=== PATIENT | female | born 1960 | race Caucasian/White ===

== ENCOUNTER 2018-01-01 07:37 | Day surgery (SDC) | payer OTHER ==
[2018-01-01] MEDS ORDERED: ONDANSETRON HCL 40 MG/20 ML VIAL ONE (07:50)
[2018-01-01] MEDS ORDERED: PROPOFOL 200 MG/20 ML VIAL IV ONE (07:50)
[2018-01-01] MEDS ORDERED: FENTANYL CITR 250 MCG/5 ML ONE (07:50)
[2018-01-01] MEDS ORDERED: LIDOCAINE 2% MPF 5 ML VIAL ONE (07:50)
[2018-01-01] MEDS ORDERED: MIDAZOLAM HCL 2 MG/2 ML INJ ONE (07:50)
[2018-01-01] MEDS ORDERED: STRONG IODINE SOLN 15 ML BTL TOP ONE (07:52)
[2018-01-01] MEDS ORDERED: ACETIC ACID 0.25% IRRIG ONE (07:52)
[2018-01-01] MEDS ORDERED: Ringers Lactate 1,000 ML IV ONE ×2 (07:57→10:12)
[2018-01-01] MEDS ORDERED: NA CHLORIDE 0.9% 0 ML ONE (08:09)
[2018-01-01] MEDS ORDERED: VASOPRESSIN 20 UNIT/ML VIAL ONE (08:10)
[2018-01-01] MEDS: LIDOCAINE 1% W/EPI 1:100,000 MDV 50 ML VIAL ONE ×2 (08:30→09:19)
[2018-01-01] MEDS ORDERED: EPHEDRINE SULF 50 MG/5 ML SYR ONE (08:42)
[2018-01-01] MEDS ORDERED: CEFAZOLIN SODIUM 1 GM/VIAL ONE (08:56)
== END 2018-01-01 12:00 | disposition home or self-care (01) ==
LOC: OR 07:37
PROVIDERS: ATTEND Obstetrics & Gynecology
PROC: 0HBAXZX Excision of Inguinal Skin, External Approach, Diagnostic (ICD-10-PCS; principal; 2018-01-01 09:15)
PROC: 0UJH8ZZ Inspection of Vagina and Cul-de-sac, Via Natural or Artificial Opening Endoscopic (ICD-10-PCS; 2018-01-01 09:15)
DX: D07.1 Carcinoma in situ of vulva (principal); I10 Essential (primary) hypertension; F41.9 Anxiety disorder, unspecified; F32.9 Major depressive disorder, single episode, unspecified; M79.7 Fibromyalgia; M06.9 Rheumatoid arthritis, unspecified; K57.90 Diverticulosis of intestine, part unspecified, without perforation or abscess without bleeding; F17.210 Nicotine dependence, cigarettes, uncomplicated; N30.00 Acute cystitis without hematuria; N95.2 Postmenopausal atrophic vaginitis; Z88.5 Allergy status to narcotic agent; Z88.8 Allergy status to other drugs, medicaments and biological substances
CPT/HCPCS: 11626; 56821; 88305; J0690; J2250; J2405

== ENCOUNTER 2019-04-09 06:36 | Day surgery (SDC) | payer OTHER ==
[2019-04-08 14:03] LABS: Absolute Lymphocytes (CBC) 2.2 K/uL (0.7-4.9); Basophils % 2.1 % (0-1.3); Hematocrit 30.1 % (36.0-45.0); Lymphocytes % 34.4 % (15.3-44.8); MPV 9.4 fL (7.6-11.3)
[2019-04-08 14:10] LABS: Protime INR 0.9
[2019-04-08 14:15] LABS: Potassium 4.6 mmol/L (3.5-5.1)
[2019-04-09] MEDS ORDERED: LIDOCAINE 1% 20 ML MDV ONE (06:57)
[2019-04-09] MEDS ORDERED: HEPA 1000U/500MLS 2,000 UNIT/1,000 ML BAG IV ONE (06:58)
[2019-04-09] MEDS ORDERED: NA CHLORIDE 0.9% 500 ML ONE (07:21)
[2019-04-09] MEDS ORDERED: ATROPINE SULF 1 MG/10 ML SYR IV ONE (07:53)
[2019-04-09] MEDS ORDERED: HEPARIN 5000 UNIT/ML 1 ML VIAL ONE (07:53)
[2019-04-09] MEDS ORDERED: NITROGLYCERIN 100 MCG/ML SYR (for cath lab use only) IV ONE (07:53)
[2019-04-09] MEDS ORDERED: FENTANYL CITR 100 MCG/2 ML ONE (07:53)
[2019-04-09] MEDS ORDERED: NICARDIPINE HCL 25 MG/10 ML IV ONE (07:53)
[2019-04-09] MEDS ORDERED: MIDAZOLAM HCL 2 MG/2 ML INJ ONE ×2 (07:53→08:22)
[2019-04-09] MEDS ORDERED: NITROGLYCERIN/D5W 25 MG/250 ML BTL IV ONE (07:54)
[2019-04-09] MEDS ORDERED: NA CHLORIDE 0.9% 0 ML ONE (07:54)
--- NOTE | 2019-04-09 09:26 | EKG ---
Test Date: 2019-04-08 Test Time: 13:22:59 Lead Java Software Engineer: NATALIIA MEASUREMENT RESULTS: Intervals: Rate: 48 CO: 204 QRSD: 104 QT: 460 QTc: 410 [place]: P: 52 CO: 204 QRS: 45 T: 41 INTERPRETIVE STATEMENTS: Marked sinus bradycardia Abnormal ECG No previous ECG available for comparison Electronically Signed On 04-09-19 09:24:09 CDT by Jose Correa
[2019-04-09 09:52] VITALS: TEMP 97.2
[2019-04-09 10:42] VITALS: BP 117/64; O2SAT 100
--- NOTE | 2019-04-09 19:27 | OP ---
Surgeon: Jose Correa MD Additional Attending Physician: Dr. Luiza Sanchez. Procedure: Left heart catheterization, coronary left ventricular angiography. Procedure Findings: The patient has normal coronary arteries. Her left ventricular ejection fractio n is normal. The left ventricular end-diastolic pressure is normal at 12. There were no abnormaliti es seen during the cardiac cath; and the diagnosis is she had a false-positive stress test and has no ncardiac chest pain. Procedure In Detail: The patient was brought to the cardiac ear mold laboratory technician in a fasting state, sedated wit h Versed and fentanyl. Prepared and draped in usual sterile fashion. Right radial approach was used . We anesthetized the skin over the right radial artery with 2 cc of 1% lidocaine. We entered the a rtery using a 21-gauge needle, cannulated the artery with a 0.021 inch diameter guidewire and placed a 6-Japanese Terumo sheath. As soon as the sheath was in place, we flushed it and administered the rad ial cocktail through the sheath consisting of nicardipine, heparin, and nitroglycerin. We guided a T IG catheter into the ascending aorta using a Terumo Glidewire and fluoroscopy. We were able to angio gram left coronary, right coronary, left ventricle, all with the same catheter at the end of the proc edure and all the data was obtained. We withdrew the catheter over a wire, flushed the sheath, remov ed the sheath, and closed the arteriotomy using a TR band. Estimated Blood Loss: 5 cc. Worm Grower: Erin Truong. Complications: None. STEPHEN/SHAWNA Voice ID: [id number] Report ID: [id number]
--- NOTE | 2019-04-12 01:55 | HP ---
Date of Admission: 04/09/2019 History Of Present Illness: Ms. Escalante is 58. She has a history of chest pain. She has had several n oninvasive tests that are indicative of either scar or ischemia. We decided to do a cardiac cath to see if she really has coronary heart disease or not. It is equivocal. Her chest pain was atypical. She does not have diabetes or dyslipidemia. Never had a previous history of myocardial infarction o r stroke. She reports drug intolerance to atorvastatin, pregabalin, and hydrocortisone. She uses no tobacco. Physical Examination: Vital Signs: Her blood pressure is 123/74, heart rate 52, temperature 97.2, not in any pain. HEENT: Unremarkable. Lungs: Clear. Cardiac: Within normal limits. Carotids, no bruit. Abdomen: Reveals no pulsatile mass or other mass. No tenderness, guarding, rigidity, rebound. Extremities: No cyanosis, clubbing, or edema. Radial pulses are equal. Jitendra sign is normal in bot h sides. Recommendation: The patient have a cardiac cath for diagnostic purposes and if there is a stenosis, she will consent to doing the stent at the same time. The patient seems to understand the procedure, its potential benefits, indications, risks, and agrees to proceed. CAMDEN Voice ID: [id number]
== END 2019-04-09 10:44 | disposition home or self-care (01) ==
LOC: CCL 06:36
PROVIDERS: ATTEND Internal Medicine
DX: R94.39 Abnormal result of other cardiovascular function study (principal); R07.89 Other chest pain; I10 Essential (primary) hypertension; Z88.6 Allergy status to analgesic agent; Z88.5 Allergy status to narcotic agent; Z88.8 Allergy status to other drugs, medicaments and biological substances
CPT/HCPCS: 93005; 85025; 80048; 36415; 85610; 85730; 93458; C1893; J1644; J2250 ×2; J3010; J0583

== ENCOUNTER 2023-05-31 06:55 | Observation (INO) | payer OTHER ==
[2023-05-28 14:41] LABS: Specific Gravity 1.008 (1.005-1.030); Urine Bilirubin NEGATIVE (Negative); Urine Blood Negative (Negative); Urine Clarity Clear (Clear); Urine Color Light-Yellow (Yellow); Urine Glucose NEGATIVE (Negative); Urine Protein NEGATIVE (Negative); Urine Urobilinogen Normal (Normal); Urine pH 7.5 (5.0-7.0)
[2023-05-28 14:42] LABS: Absolute Lymphocytes (CBC) 2.1 K/uL (0.7-4.9); Hematocrit 38.1 % (36.0-45.0); MCV 86.7 fL (80-100); MPV 8.6 fL (7.6-11.3); Platelets 236 thou/uL (152-406)
[2023-05-28 14:44] LABS: Protime INR 0.88
[2023-05-28 14:51] LABS: Potassium 4.1 mEq/L (3.5-5.1)
--- NOTE | 2023-05-30 17:29 | EKG ---
Test Date: 2023-05-28 Test Time: 15:00:10 Field Marketing Lead: JAIMIE MEASUREMENT RESULTS: Intervals: Rate: 62 IN: 224 QRSD: 82 QT: 442 QTc: 448 [place]: P: 75 IN: 224 QRS: 47 T: 43 INTERPRETIVE STATEMENTS: Sinus rhythm with 1st degree AV block with premature atrial complexes with aberrant conduction Otherwise normal ECG Compared to ECG 04/08/2019 13:22:59 Atrial premature complex(es) now present First degree AV block now present Aberrant conduction of supraventricular beat(s) now present Sinus bradycardia no longer present Electronically Signed On 05-30-23 17:23:04 SOLAR MAINTENANCE TECHNICIAN by Morales Castillo
[2023-05-31] MEDS ORDERED: CEFAZOLIN SODIUM 2 GM/VIAL ONE ×2 (07:37→08:15)
[2023-05-31] MEDS ORDERED: Ringers Lactate 1,000 ML IV ONE ×2 (07:37→14:21)
[2023-05-31] MEDS ORDERED: propofoL 200 MG/20 ML VIAL IV ONE (08:04)
[2023-05-31] MEDS ORDERED: ROCURONIUM 50 MG/5 ML VIAL IV ONE (08:04)
[2023-05-31] MEDS ORDERED: ONDANSETRON 4 MG/2 ML VIAL ONE ×2 (08:04→12:51)
[2023-05-31] MEDS ORDERED: FENTANYL CITR 100 MCG/2 ML ONE (08:04)
[2023-05-31] MEDS ORDERED: KETOROLAC 30 MG/ML INJ ONE (08:04)
[2023-05-31] MEDS ORDERED: MIDAZOLAM HCL 2 MG/2 ML INJ ONE (08:04)
[2023-05-31] MEDS ORDERED: SCOPOLAMINE HYDROBROMIDE PATCH TD ONE (08:12)
[2023-05-31] MEDS ORDERED: EPHEDRINE SULF 50 MG/ML VIAL ONE ×2 (09:04→09:14)
[2023-05-31] MEDS ORDERED: NS 0.9% VIAL 30 ML ONE (09:08)
[2023-05-31] MEDS ORDERED: LANO/MINERAL OIL/PETRO 3.5 GM ONE (09:20)
[2023-05-31] MEDS ORDERED: VECURONIUM 10 MG/VIAL IV ONE (10:08)
[2023-05-31] MEDS: HYDROMORPHONE HCL 1 MG/ML INJ ONE ×4 (10:55→11:10)
[2023-05-31] MEDS ORDERED: ACETAMINOPHEN 500 MG TAB PO PRN (10:58)
[2023-05-31] MEDS ORDERED: HOME MED 1 EA UNK (Estradiol [Estrace] 42.5 GM Cream.Appl) PO SCH (11:00)
--- NOTE | 2023-05-31 11:09 | P.BOP ---
Preoperative diagnosis: symptomatic stage 3 posterior wall prolapse Postoperative diagnosis: same, post enterocele, perineal body defect Primary procedure: posterior wall defect repair with biological graft augmentation Secondary procedure: post enterocele repair, perineorrhaphy, starr SSLF cervico- colpopexy Other procedure(s): cystoscopy Boiler Tester: NONE,NONE Estimated blood loss: 150 Specimen: none Findings: -2/-2/-4/5/thin/7/+1/+2/-4, posterior enterocele, cysto patent ureters Anesthesia: General Complications: None Drain(s): Urinary catheter Implants: coloplast axis dermis 6x8cm graft Fluids & blood products: 1200/UO 100 Transferred to: Recovery Room Condition: Good
[2023-05-31] MEDS: FENTANYL CITR 100 MCG/2 ML ONE ×2 (11:35→13:00)
--- OUTSIDE RECORDS SUMMARY | 2023-05-31 13:48 | XMS REPORT | Continuity of Care Document ---
:1960 Author Organization [facility] t Address [address] [place] [address] [address] [place] [address] Care Team Providers Name Role Phone Citlali Gama MD Primary Care Physician [email or web address] Attending Clinician Unavailable Dayana Gaitan MD Attending Clinician TAMMY MCNEAL Attending Clinician Unavailable Tammy Mcneal MD Attending Clinician DAYANA GAITAN Attending Clinician Unavailable Doctor Unassigned, [place] Attending Clinician Unavailable Vitor Day MD Attending Clinician Mckenzie Conner MA Attending Clinician Unavailable RADIOLOGY Attending Clinician Unavailable Radiology Attending Clinician Unavailable Josué Pruett MD Attending Clinician MARVIN GREENBERG Attending Clinician Unavailable Yao Fischer Attending Clinician YAO FITZGERALD Attending Clinician Unavailable JOSUÉ PRUETT Attending Clinician Unavailable Serafin Michel MD Attending Clinician Girish Lora DO Attending Clinician Luiza Abbott Attending Clinician ARNAUD PENA Attending Clinician Unavailable MD ARNAUD PENA Attending Clinician Unavailable [email or web address] Admitting Clinician Unavailable TAMMY MCNEAL Admitting Clinician Unavailable MAYA FABIAN Admitting Clinician Unavailable JOSUÉ PRUETT Admitting Clinician Unavailable ARNAUD PENA Admitting Clinician Unavailable MD ARNAUD PENA Admitting Clinician Unavailable Payers Payer Name Policy Type Policy Number Effective Date Expiration Date Marc reed [email or web address] [id number] 2018 00:00:00 [employer] [id number] 2018 00:00:00 [facility] [id number] PHYSICIAN ORGANIZATION - [facility] [address] (MEDICARE REPLACEMENT HMO) Problems Condition Condition Condition Status Onset Resolution Last Treating Co mments Source Name Details Category Date Date Treatment Clinician Date Primary Primary Disease Active [facility] osteoarthr osteoarthr 11-14 [facility] itis of 00:00: Hospita right knee right knee 00 l Class 3 Class 3 Disease Active [facility] severe severe [address] [facility] obesity obesity 00:00: Hospita due to due to 00 l excess excess calories calories with with serious serious comorbidit comorbidit y and body y and body mass index mass index (BMI) of (BMI) of 45.0 to 45.0 to 49.9 in 49.9 in adult adult Wound Wound Disease Active 2016-07 Univers infection infection 1-05 ity of 00:00: [place] [id number] Medical Branch Essential Essential Disease Active 2016-07 Uni vers hypertensi hypertensi 0-17 it y of on on 00:00: [place] [id number] Medical Branch Morbid Morbid Disease Active 2016-07 Univers obesity obesity 0-17 ity of with BMI with BMI 00:00: [place] of of 00 Medical 50.0-59.9, 50.0-59.9, Br anch adult adult Vulvar Vulvar Disease Active 2016-07 Overview: Univer s lesion lesion 0-17 Formattin ity of 00:00: g of this note Medical might be Branch different from the original. Added automatic ally from request for surgery [id number] Right knee Right knee Disease Active U nivers pain pain 7-15 ity of 00:00: [place] [facility] Right knee Right knee Disease Active U nivers pain pain 7-15 ity of 00:00: [place] [facility] Allergies, Adverse Reactions, Alerts Allergy Allergy Status Severity Reaction(s) Onset Inactive Treating Comm ents Source Name Type Date Date Clinician Statins- Propensi Active Palpitations 2019-07 Methodi Hmg-Coa ty to 07-25 st Reductas adverse 00:00: Hospita e reaction 00 l Inhibito s to rs drug Adhesive Propensi Active Rash 2019-07 Method i Tape-Vandana ty to 07-24 st icones adverse 00:00: Hospita reaction 00 l s to drug Nsaids Propensi Active Other - See Uni vers (Non-Braulio ty to comments 08-12 ity of roidal adverse 00:00: [place] Anti-Inf reaction 00 Medica l lammator s Branch y Drug) NSAIDS Drug Active Other-Cmnt Univer s (NON-BRAULIO Class 08-12 ity of ROIDAL 00:00: [place] ANTI-INF 00 Medical LAMMATOR Branch Y DRUG) Nsaids Propensi Active Other - See Uni vers (Non-Braulio ty to comments 08-12 ity of roidal adverse 00:00: [place] Anti-Inf reaction 00 Medica l lammator s Branch y Drug) PREGABAL DRUG Active Rash Univers IN INGREDI 10-09 ity of 00:00: [place] 00 Medical Branch Pregabal Propensi Active Rash Univer s in ty to 10-09 ity of adverse 00:00: [place] reaction 00 Medical s Branch Social History Social Habit Start Date Stop Date Quantity Comments Source Gender identity [facility] [place] [facility] [place] History [facility] o f Alcohol Frequency [facility] edical Branch History [facility] o f Alcohol Std Drinks [place] [facility] [place] History [facility] o f Alcohol Binge [place] [facility] History of tobacco Current smoker [facility] Sexual orientation [facility] Exposure to 2022-11-27 2022-12-07 Not sure University of SARS-CoV-2 (event) 00:00:00 13:58:00 [facility] Alcohol intake 2022-11-21 2022-11-21 [facility] 00:00:00 00:00:00 non-drinker Hospital (finding) History of Social 2022-11-21 2022-11-[address] function 00:00:00 00:00:00 Hospital Tobacco use and 2022-06-01 2022-06-01 [facility] exposure 00:00:00 00:00:00 tobacco non-user Hospital Alcohol Comment 2017-04-27 2017-04-27 occ Universit y of 00:00:00 00:00:00 [facility] Cigarettes smoked 2016-01-28 2016-01-28 [facility] ity of current (pack per 00:00:00 00:00:00 ) - Reported Branch Sex Assigned At [birth year] [facility] 00:[facility]:00 Hospital Smoking Status Start Date Stop Date Source Ex-smoker 2022-06-01 00:00:00 2022-06-01 00:00:00 [facility] Smokes tobacco daily 2016-01-28 00:00:00 [facility] ity of [facility] Medications Ordered Filled Start Stop Current Ordering Indication Dosage Frequency Signature Comments Components Source Medication Medication Date Date Medication? Clinician (SIG) Name Name cranberry Yes Take by Metho di fruit 5-[address] (cranberry) 16:11: Hospit a 450 mg 11 l tablet ferrous Yes 325mg QD Take 1 [facility]i sulfate 325 5-[address] (65 FE) MG 16:11: (325 mg Hosp sade tablet 11 total) by l mouth daily with breakfast. gabapentin Yes 400mg Q.[id number] Take 1 [facility]i (NEURONTIN) 5-[id number] 400 mg 16:11: 3D (400 mg Hospita capsule 11 total) by l mouth 3 (three) times a day. multivitami Yes 1{tbl} QD Take 1 Me thodi n 5-[address] (THERAGRAN) 16:11: mouth Hospi ta tablet 11 daily. l Saccharomyc Yes 250mg Q.5D Take 1 Met hodi es 5-[address] boulardii 16:11: (250 mg Hospi ta (FLORASTOR) 11 total) by l 250 mg mouth 2 capsule (two) times a day. traMADoL 0 [place] [id number] 50mg Q6H Take 1 Method i (ULTRAM) 50 5-09 tablet (50 st mg tablet 16:11: mg total) Hos reina 11 by mouth l every 6 (six) hours as needed for moderate pain .acute pain. venlafaxine Yes 225mg QD Take 1 Met hodi 225 MG 5-[address] tablet 16:11: (225 mg Hospita extended 11 total) by l release mouth 24hr 24 hr daily. tablet ALPRAZolam Yes 1mg QD Take 1 Metho di (XANAX) 1 5-09 tablet (1 st MG tablet 16:11: mg total) Hos reina 11 by mouth l nightly as needed for anxiety. carvediloL Yes 6.25mg Q.5D Take 1 Met hodi (COREG) 5-[address] 6.25 MG 16:11: (6.25 mg Hospit a tablet 11 total) by l mouth 2 (two) times a day with meals. levothyroxi Yes 50ug QD Take 1 Meth tomás ne 5-09 tablet (50 st (SYNTHROID) 16:11: mcg total) Hospita 50 mcg 11 by mouth l tablet daily. aspirin Yes 81mg QD Take 1 Methodi (ECOTRIN) 5-09 tablet (81 st 81 MG 16:11: mg total) Hospita enteric 11 by mouth l coated daily. tablet carvedilol 2020-07 Yes 12.5mg Take 12.5 Univers 12.5 mg 1-10 mg by ity of tablet 14:41: mouth 2 (two) Medical times Branch daily with meals. estradiol 2020-07 Yes 2g Insert 2 g Un pato (ESTRACE) 1-10 into ity of 0.01 % (0.1 14:[place]: [place] mg/gram[place] 00 weekly. Medical vaginal Branch cream omeprazole 2020-07 Yes 20mg Take 20 mg U nivers 20 mg 1-10 by mouth ity of capsule 14:41: daily. Medical Branch venlafaxine 2020-07 Yes 37.5mg Take 37.5 Univers XR 37.5 mg 1-10 mg by ity of 24 hr 14:41: mouth [place] capsule 00 daily with Medica l breakfast. Branch carvedilol 2020-07 Yes 12.5mg Take 12.5 Univers 12.5 mg 1-10 mg by ity of tablet 14:41: mouth 2 00 (two) Medical times Branch daily with meals. estradiol 2020-07 Yes 2g Insert 2 g Un pato (ESTRACE) 1-10 into ity of 0.01 % (0.1 14:41: [place] mg/gram) 00 weekly. Medical vaginal Branch cream omeprazole 2020-07 Yes 20mg Take 20 mg U nivers 20 mg 1-10 by mouth ity of capsule 14:41: daily. Medical Branch venlafaxine 2020-07 Yes 37.5mg Take 37.5 Univers XR 37.5 mg 1-10 mg by ity of 24 hr 14:41: mouth [place] capsule 00 daily with Medica l breakfast. Branch carvedilol 2020-07 Yes 12.5mg Take 12.5 Univers 12.5 mg 1-10 mg by ity of tablet 14:41: mouth 2 (two) Medical times [place] daily with meals. estradiol 2020-07 Yes 2g Insert 2 g Un pato (ESTRACE) 1-10 into ity of 0.01 % (0.1 14:41: [place] mg/gram) 00 weekly. Medical vaginal Branch cream omeprazole 2020-07 Yes 20mg Take 20 mg U nivers 20 mg 1-10 by mouth ity of capsule 14:41: daily. Medical Branch venlafaxine 2020-07 Yes 37.5mg Take 37.5 Univers XR 37.5 mg 1-10 mg by ity of 24 hr 14:41: mouth [place] capsule 00 daily with Medica l breakfast. Branch carvedilol 2020-07 Yes 12.5mg Take 12.5 Univers 12.5 mg 1-10 mg by ity of tablet 14:41: mouth 2 (two) Medical times [place] daily with meals. estradiol 2020-07 Yes 2g Insert 2 g Un pato (ESTRACE) 1-10 into ity of 0.01 % (0.1 14:41: [place] mg/gram) 00 weekly. Medical vaginal Branch cream omeprazole 2020-07 Yes 20mg Take 20 mg U nivers 20 mg 1-10 by mouth ity of capsule 14:41: daily. Medical Branch venlafaxine 2020-07 Yes 37.5mg Take 37.5 Univers XR 37.5 mg 1-10 mg by ity of 24 hr 14:41: mouth [place] capsule 00 daily with Medica l breakfast. Branch carvedilol 2020-07 Yes 12.5mg Take 12.5 Univers 12.5 mg 1-10 mg by ity of tablet 14:41: mouth 2 (two) Medical times [place] daily with meals. estradiol 2020-07 Yes 2g Insert 2 g Un pato (ESTRACE) 1-10 into ity of 0.01 % (0.1 14:41: [place] mg/gram) 00 weekly. Medical vaginal Branch cream omeprazole 2020-07 Yes 20mg Take 20 mg U nivers 20 mg 1-10 by mouth ity of capsule 14:41: daily. Medical Branch venlafaxine 2020-07 Yes 37.5mg Take 37.5 Univers XR 37.5 mg 1-10 mg by ity of 24 hr 14:41: mouth [place] capsule 00 daily with Medica l breakfast. Branch carvedilol 2020-07 Yes 12.5mg Take 12.5 Univers 12.5 mg 1-10 mg by ity of tablet 14:41: mouth 2 (two) Medical times [place] daily with meals. estradiol 2020-07 Yes 2g Insert 2 g Un pato (ESTRACE) 1-10 into ity of 0.01 % (0.1 14:41: [place] mg/gram) 00 weekly. Medical vaginal Branch cream omeprazole 2020-07 Yes 20mg Take 20 mg U nivers 20 mg 1-10 by mouth ity of capsule 14:41: daily. Medical Branch venlafaxine 2020-07 Yes 37.5mg Take 37.5 Univers XR 37.5 mg 1-10 mg by ity of 24 hr 14:41: mouth [place] capsule 00 daily with Medica l breakfast. Branch carvedilol 2020-07 Yes 12.5mg Take 12.5 Univers 12.5 mg 1-10 mg by ity of tablet 14:41: mouth 2 (two) Medical times [place] daily with meals. estradiol 2020-07 Yes 2g Insert 2 g Un pato (ESTRACE) 1-10 into ity of 0.01 % (0.1 14:41: [place] mg/gram) 00 weekly. Medical vaginal Branch cream omeprazole 2020-07 Yes 20mg Take 20 mg U nivers 20 mg 1-10 by mouth ity of capsule 14:41: daily. Medical Branch venlafaxine 2020-07 Yes 37.5mg Take 37.5 Univers XR 37.5 mg 1-10 mg by ity of 24 hr 14:41: mouth [place] capsule 00 daily with Medica l breakfast. Branch carvedilol 2020-07 Yes 12.5mg Take 12.5 Univers 12.5 mg 1-10 mg by ity of tablet 14:41: mouth 2 (two) Medical times [place] daily with meals. estradiol 2020-07 Yes 2g Insert 2 g Un pato (ESTRACE) 1-10 into ity of 0.01 % (0.1 14:41: [place] mg/gram) 00 weekly. Medical vaginal Branch cream omeprazole 2020-07 Yes 20mg Take 20 mg U nivers 20 mg 1-10 by mouth ity of capsule 14:41: daily. Medical Branch venlafaxine 2020-07 Yes 37.5mg Take 37.5 Univers XR 37.5 mg 1-10 mg by ity of 24 hr 14:41: mouth [place] capsule 00 daily with Medica l breakfast. Branch carvedilol 2020-07 Yes 12.5mg Take 12.5 Univers 12.5 mg 1-10 mg by ity of tablet 14:41: mouth (two) Medical times [place] daily with meals. estradiol 2020-07 Yes 2g Insert 2 g Un pato (ESTRACE) 1-10 into ity of 0.01 % (0.1 14:41: [place] mg/gram) 00 weekly. Medical vaginal Branch cream omeprazole 2020-07 Yes 20mg Take 20 mg U nivers 20 mg 1-10 by mouth ity of capsule 14:41: daily. Medical Branch venlafaxine 2020-07 Yes 37.5mg Take 37.5 Univers XR 37.5 mg 1-10 mg by ity of 24 hr 14:41: mouth [place] capsule 00 daily with Medica l breakfast. Branch carvedilol 2020-07 Yes 12.5mg Take 12.5 Univers 12.5 mg 1-10 mg by ity of tablet 14:41: mouth 2 (two) Medical times [place] daily with meals. estradiol 2020-07 Yes 2g Insert 2 g Un pato (ESTRACE) 1-10 into ity of 0.01 % (0.1 14:41: [place] mg/gram) 00 weekly. Medical vaginal Branch cream omeprazole 2020-07 Yes 20mg Take 20 mg U nivers 20 mg 1-10 by mouth ity of capsule 14:41: daily. Medical Branch venlafaxine 2020-07 Yes 37.5mg Take 37.5 Univers XR 37.5 mg 1-10 mg by ity of 24 hr 14:41: mouth [place] capsule 00 daily with Medica l breakfast. Branch carvedilol 2020-07 Yes 12.5mg Take 12.5 Univers 12.5 mg 1-10 mg by ity of tablet 14:41: mouth 2 (two) Medical times [place] daily with meals. estradiol 2020-07 Yes 2g Insert 2 g Un pato (ESTRACE) 1-10 into ity of 0.01 % (0.1 14:41: [place] mg/gram) 00 weekly. Medical vaginal Branch cream omeprazole 2020-07 Yes 20mg Take 20 mg U nivers 20 mg 1-10 by mouth ity of capsule 14:41: daily. Medical Branch venlafaxine 2020-07 Yes 37.5mg Take 37.5 Univers XR 37.5 mg 1-10 mg by ity of 24 hr 14:41: mouth [place] capsule 00 daily with Medica l breakfast. Branch carvedilol 2020-07 Yes 12.5mg Take 12.5 Univers 12.5 mg 1-10 mg by ity of tablet 14:41: mouth (two) Medical times [place] daily with meals. estradiol 2020-07 Yes 2g Insert 2 g Un pato (ESTRACE) 1-10 into ity of 0.01 % (0.1 14:41: [place] mg/gram) 00 weekly. Medical vaginal Branch cream omeprazole 2020-07 Yes 20mg Take 20 mg U nivers 20 mg 1-10 by mouth ity of capsule 14:41: daily. Medical Branch venlafaxine 2020-07 Yes 37.5mg Take 37.5 Univers XR 37.5 mg 1-10 mg by ity of 24 hr 14:41: mouth [place] capsule 00 daily with Medica l breakfast. Branch carvedilol 2020-07 Yes 12.5mg Take 12.5 Univers 12.5 mg 1-10 mg by ity of tablet 14:41: mouth 2 (two) Medical times [place] daily with meals. estradiol 2020-07 Yes 2g Insert 2 g Un pato (ESTRACE) 1-10 into ity of 0.01 % (0.1 14:41: [place] mg/gram) 00 weekly. Medical vaginal Branch cream omeprazole 2020-07 Yes 20mg Take 20 mg U nivers 20 mg 1-10 by mouth ity of capsule 14:41: daily. Medical Branch venlafaxine 2020-07 Yes 37.5mg Take 37.5 Univers XR 37.5 mg 1-10 mg by ity of 24 hr 14:41: mouth [place] capsule 00 daily with Medica l breakfast. Branch carvedilol 2020-07 Yes 12.5mg Take 12.5 Univers 12.5 mg 1-10 mg by ity of tablet 14:41: mouth 2 00 (two) Medical times Branch daily with meals. estradiol 2020-07 Yes 2g Insert 2 g Un pato (ESTRACE) 1-10 into ity of 0.01 % (0.1 14:41: [place] mg/gram) 00 weekly. Medical vaginal Branch cream omeprazole 2020-07 Yes 20mg Take 20 mg U nivers 20 mg 1-10 by mouth ity of capsule 14:41: daily. Medical Branch venlafaxine 2020-07 Yes 37.5mg Take 37.5 Univers XR 37.5 mg 1-10 mg by ity of 24 hr 14:41: mouth [place] capsule 00 daily with Medica l breakfast. Branch methylPREDN 2020-07 Yes [id number] 84mg Take 21 Univers ISolone 0-04 109 tablets by ity of (MEDROL, 00:00: mouth [place] DALJIT,) 4 mg 00 SEE-INSTRU Med ical tablets CTIONS. Branch follow package directions methylPREDN 2020-07 Yes [id number] 84mg Take 21 Univers ISolone 0-04 109 tablets by ity of (MEDROL, 00:00: mouth [place] DALJIT,) 4 mg 00 SEE-INSTRU Med ical tablets CTIONS. Branch follow package directions methylPREDN 2020-07 Yes [id number] 84mg Take 21 Univers ISolone 0-04 109 tablets by ity of (MEDROL, 00:00: mouth [place] DALJIT,) 4 mg 00 SEE-INSTRU Med ical tablets CTIONS. Branch follow package directions methylPREDN 2020-07 Yes [id number] 84mg Take 21 Univers ISolone 0-04 109 tablets by ity of (MEDROL, 00:00: mouth [place] DALJIT,) 4 mg 00 SEE-INSTRU Med ical tablets CTIONS. Branch follow package directions methylPREDN 2020-07 Yes [id number] 84mg Take 21 Univers ISolone 0-04 109 tablets by ity of (MEDROL, 00:00: mouth [place] DALJIT,) 4 mg 00 SEE-INSTRU Med ical tablets CTIONS. Branch follow package directions methylPREDN 2020-07 Yes [id number] 84mg Take 21 Univers ISolone 0-04 109 tablets by ity of (MEDROL, 00:00: mouth [place] DALJIT,) 4 mg 00 SEE-INSTRU Med ical tablets CTIONS. Branch follow package directions methylPREDN 2020-07 Yes [id number] 84mg Take 21 Univers ISolone 0-04 109 tablets by ity of (MEDROL, 00:00: mouth [place] DALJIT,) 4 mg 00 SEE-INSTRU Med ical tablets CTIONS. Branch follow package directions methylPREDN 2020-07 Yes [id number] 84mg Take 21 Univers ISolone 0-04 109 tablets by ity of (MEDROL, 00:00: mouth [place] DALJIT,) 4 mg 00 SEE-INSTRU Med ical tablets CTIONS. Branch follow package directions methylPREDN 2020-07 Yes [id number] 84mg Take 21 Univers ISolone 0-04 109 tablets by ity of (MEDROL, 00:00: mouth [place] DALJIT,) 4 mg 00 SEE-INSTRU Med ical tablets CTIONS. Branch follow package directions methylPREDN 2020-07 Yes [id number] 84mg Take 21 Univers ISolone 0-04 109 tablets by ity of (MEDROL, 00:00: mouth [place] DALJIT,) 4 mg 00 SEE-INSTRU Med ical tablets CTIONS. Branch follow package directions methylPREDN 2020-07 Yes [id number] 84mg Take 21 Univers ISolone 0-04 109 tablets by ity of (MEDROL, 00:00: mouth [place] DALJIT,) 4 mg 00 SEE-INSTRU Med ical tablets CTIONS. Branch follow package directions methylPREDN 2020-07 Yes [id number] 84mg Take 21 Univers ISolone 0-04 109 tablets by ity of (MEDROL, 00:00: mouth [place] DALJIT,) 4 mg 00 SEE-INSTRU Med ical tablets CTIONS. Branch follow package directions methylPREDN 2020-07 Yes [id number] 84mg Take 21 Univers ISolone 0-04 109 tablets by ity of (MEDROL, 00:00: mouth [place] DALJIT,) 4 mg 00 SEE-INSTRU Med ical tablets CTIONS. Branch follow package directions TRAMADOL Yes Take by Univer s HCL 4-22 mouth. ity of (TRAMADOL 14:27: [place] ORAL) Medical Branch TRAMADOL Yes Take by Univer s HCL 4-22 mouth. ity of (TRAMADOL 14:27: [place] ORAL) Medical Branch TRAMADOL Yes Take by Univer s HCL 4-22 mouth. ity of (TRAMADOL 14:27: [place] ORAL) [facility] Branch TRAMADOL Yes Take by Univer s HCL 4-22 mouth. ity of (TRAMADOL 14:27: [place] ORAL) Medical Branch TRAMADOL Yes Take by Univer s HCL 4-22 mouth. ity of (TRAMADOL 14:27: [place] ORAL) 27 [facility] Branch TRAMADOL Yes Take by Univer s HCL 4-22 mouth. ity of (TRAMADOL 14:27: [place] ORAL) 27 Medical Branch TRAMADOL Yes Take by Univer s HCL 4-22 mouth. ity of (TRAMADOL 14:27: [place] ORAL) 27 [facility] Branch TRAMADOL Yes Take by Univer s HCL 4-22 mouth. ity of (TRAMADOL 14:27: [place] ORAL) 27 Medical Branch TRAMADOL Yes Take by Univer s HCL 4-22 mouth. ity of (TRAMADOL 14:27: [place] ORAL) 27 Medical Branch TRAMADOL Yes Take by Univer s HCL 4-22 mouth. ity of (TRAMADOL 14:27: [place] ORAL) 27 Medical Branch TRAMADOL Yes Take by Univer s HCL 4-22 mouth. ity of (TRAMADOL 14:27: [place] ORAL) 27 Medical Branch TRAMADOL Yes Take by Univer s HCL 4-22 mouth. ity of (TRAMADOL 14:27: [place] ORAL) 27 Medical Branch TRAMADOL Yes Take by Univer s HCL 4-22 mouth. ity of (TRAMADOL 14:27: [place] ORAL) 27 Medical Branch TRAMADOL 2020-0 Yes Take by Univer s HCL 4-22 mouth. ity of (TRAMADOL 14:27: [place] ORAL) 27 Medical Branch traMADoL 50 2020-0 Yes [id number] 50mg Take 1 Univ ers mg tablet 4-22 tablet by ity o f 00:00: mouth [place] 00 every 4 Medical (four) Branch hours as needed for Pain (scale 7-10). Indication s: acute pain traMADoL 50 2020-0 Yes [id number] 50mg Take 1 Univ ers mg tablet 4-22 tablet by ity o f 00:00: mouth [place] 00 every 4 Medical (four) Branch hours as needed for Pain (scale 7-10). Indication s: acute pain traMADoL 50 2020-0 Yes [id number] 50mg Take 1 Univ ers mg tablet 4-22 tablet by ity o f 00:00: mouth [place] 00 every 4 Medical (four) Branch hours as needed for Pain (scale 7-10). Indication s: acute pain traMADoL 50 2020-0 Yes [id number] 50mg Take 1 Univ ers mg tablet 4-22 tablet by ity o f 00:00: mouth [place] 00 every 4 Medical (four) Branch hours as needed for Pain (scale 7-10). Indication s: acute pain traMADoL 50 2020-0 Yes [id number] 50mg Take 1 Univ ers mg tablet 4-22 tablet by ity o f 00:00: mouth [place] 00 every 4 Medical (four) Branch hours as needed for Pain (scale 7-10). Indication s: acute pain traMADoL 50 2020-0 Yes [id number] 50mg Take 1 Univ ers mg tablet 4-22 tablet by ity o f 00:00: mouth [place] 00 every 4 Medical (four) Branch hours as needed for Pain (scale 7-10). Indication s: acute pain traMADoL 50 2020-0 Yes [id number] 50mg Take 1 Univ ers mg tablet 4-22 tablet by ity o f 00:00: mouth [place] 00 every 4 Medical (four) Branch hours as needed for Pain (scale 7-10). Indication s: acute pain traMADoL 50 2020-0 Yes [id number] 50mg Take 1 Univ ers mg tablet 4-22 tablet by ity o f 00:00: mouth [place] 00 every 4 Medical (four) Branch hours as needed for Pain (scale 7-10). Indication s: acute pain traMADoL 50 2020-0 Yes [id number] 50mg Take 1 Univ ers mg tablet 4-22 tablet by ity o f 00:00: mouth [place] 00 every 4 Medical (four) Branch hours as needed for Pain (scale 7-10). Indication s: acute pain traMADoL 50 2020-0 Yes [id number] 50mg Take 1 Univ ers mg tablet 4-22 tablet by ity o f 00:00: mouth [place] 00 every 4 Medical (four) Branch hours as needed for Pain (scale 7-10). Indication s: acute pain traMADoL 50 2020-0 Yes [id number] 50mg Take 1 Univ ers mg tablet 4-22 tablet by ity o f 00:00: mouth [place] 00 every 4 Medical (four) Branch hours as needed for Pain (scale 7-10). Indication s: acute pain traMADoL 50 2020-0 Yes [id number] 50mg Take 1 Univ ers mg tablet 4-22 tablet by ity o f 00:00: mouth [place] 00 every 4 Medical (four) Branch hours as needed for Pain (scale 7-10). Indication s: acute pain traMADoL 50 2020-0 Yes [id number] 50mg Take 1 Univ ers mg tablet 4-22 tablet by ity o f 00:00: mouth [place] 00 every 4 Medical (four) Branch hours as needed for Pain (scale 7-10). Indication s: acute pain traMADoL 50 2020-0 Yes [id number] 50mg Take 1 Univ ers mg tablet 4-22 tablet by ity o f 00:00: mouth [place] 00 every 4 Medical (four) Branch hours as needed for Pain (scale 7-10). Indication s: acute pain Diclofenac 2020-0 Yes [id number] Apply to Univers Sodium 1 % 3-25 9100 area(s) 2 ity of gel 00:00: (two) [place] 00 times Medical daily as Branch needed for Pain (scale 4-6) (Apply 2 g do not exceed 4 g in a day). Diclofenac 2020-0 Yes [id number] Apply to Univers Sodium 1 % 3-25 9100 area(s) 2 ity of gel 00:00: (two) [place] 00 times Medical daily as Branch needed for Pain (scale 4-6) (Apply 2 g do not exceed 4 g in a day). Diclofenac 2020-0 Yes [id number] Apply to Univers Sodium 1 % 3-25 9100 area(s) 2 ity of gel 00:00: (two) [place] 00 times Medical daily as Branch needed for Pain (scale 4-6) (Apply 2 g do not exceed 4 g in a day). Diclofenac 2020-0 Yes [id number] Apply to Univers Sodium 1 % 3-25 9100 area(s) 2 ity of gel 00:00: (two) [place] 00 times Medical daily as Branch needed for Pain (scale 4-6) (Apply 2 g do not exceed 4 g in a day). Diclofenac 2020-0 Yes [id number] Apply to Univers Sodium 1 % 3-25 9100 area(s) 2 ity of gel 00:00: (two) [place] 00 times Medical daily as Branch needed for Pain (scale 4-6) (Apply 2 g do not exceed 4 g in a day). Diclofenac 2020-0 Yes [id number] Apply to Univers Sodium 1 % 3-25 9100 area(s) 2 ity of gel 00:00: (two) [place] 00 times Medical daily as Branch needed for Pain (scale 4-6) (Apply 2 g do not exceed 4 g in a day). Diclofenac 2020-0 Yes [id number] Apply to Univers Sodium 1 % 3-25 9100 area(s) 2 ity of gel 00:00: (two) [place] 00 times Medical daily as Branch needed for Pain (scale 4-6) (Apply 2 g do not exceed 4 g in a day). Diclofenac 2020-0 Yes [id number] Apply to Univers Sodium 1 % 3-25 9100 area(s) 2 ity of gel 00:00: (two) [place] 00 times Medical daily as Branch needed for Pain (scale 4-6) (Apply 2 g do not exceed 4 g in a day). Diclofenac 2020-0 Yes [id number] Apply to [facility] Sodium 1 % 3-25 9100 area(s) 2 ity of gel 00:00: (two) [place] 00 times Medical daily as Branch needed for Pain (scale 4-6) (Apply 2 g do not exceed 4 g in a day). Diclofenac 2020-0 Yes [id number] Apply to [facility] Sodium 1 % 3-25 9100 area(s) 2 ity of gel 00:00: (two) [place] 00 times Medical daily as Branch needed for Pain (scale 4-6) (Apply 2 g do not exceed 4 g in a day). Diclofenac 2020-0 Yes [id number] Apply to [facility] Sodium 1 % 3-25 9100 area(s) 2 ity of gel 00:00: (two) [place] 00 times Medical daily as Branch needed for Pain (scale 4-6) (Apply 2 g do not exceed 4 g in a day). Diclofenac 2020-0 Yes [id number] Apply to [facility] Sodium 1 % 3-25 9100 area(s) 2 ity of gel 00:00: (two) [place] 00 times Medical daily as Branch needed for Pain (scale 4-6) (Apply 2 g do not exceed 4 g in a day). Diclofenac 2020-0 Yes [id number] Apply to [facility] Sodium 1 % 3-25 9100 area(s) 2 ity of gel 00:00: (two) [place] 00 times Medical daily as Branch needed for Pain (scale 4-6) (Apply 2 g do not exceed 4 g in a day). Diclofenac 2020-0 Yes [id number] Apply to [facility] Sodium 1 % 3-25 9100 area(s) 2 ity of gel 00:00: (two) [place] 00 times Medical daily as Branch needed for Pain (scale 4-6) (Apply 2 g do not exceed 4 g in a day). Diclofenac 2020-0 Yes [id number] APPLY 2 TO [facility] Sodium 1 % 1-21 109 4 GRAMS TO ity of gel 00:00: THE [place] AFFECTED Medical AREA FOUR Branch TIMES DAILY. Diclofenac 2020-0 Yes [id number] APPLY 2 TO Univers Sodium 1 % 1-21 109 4 GRAMS TO ity of gel 00:00: THE [place] AFFECTED Medical AREA FOUR Branch TIMES DAILY. Diclofenac 2020-0 Yes [id number] APPLY 2 TO Univers Sodium 1 % 1-21 109 4 GRAMS TO ity of gel 00:00: THE [place] AFFECTED Medical AREA FOUR Branch TIMES DAILY. Diclofenac 2020-0 Yes [id number] APPLY 2 TO Univers Sodium 1 % 1-21 109 4 GRAMS TO ity of gel 00:00: THE [place] AFFECTED Medical AREA FOUR Branch TIMES DAILY. Diclofenac 2020-0 Yes [id number] APPLY 2 TO Univers Sodium 1 % 1-21 109 4 GRAMS TO ity of gel 00:00: THE [place] AFFECTED Medical AREA FOUR Branch TIMES DAILY. Diclofenac 2020-0 Yes [id number] APPLY 2 TO Univers Sodium 1 % 1-21 109 4 GRAMS TO ity of gel 00:00: THE [place] 00 AFFECTED Medical AREA FOUR Branch TIMES DAILY. Diclofenac 2020-0 Yes [id number] APPLY 2 TO Univers Sodium 1 % 1-21 109 4 GRAMS TO ity of gel 00:00: THE [place] 00 AFFECTED Medical AREA FOUR Branch TIMES DAILY. Diclofenac 2020-0 Yes [id number] APPLY 2 TO Univers Sodium 1 % 1-21 109 4 GRAMS TO ity of gel 00:00: THE [place] 00 AFFECTED Medical AREA FOUR Branch TIMES DAILY. Diclofenac 2020-0 Yes [id number] APPLY 2 TO Univers Sodium 1 % 1-21 109 4 GRAMS TO ity of gel 00:00: THE [place] 00 AFFECTED Medical AREA FOUR Branch TIMES DAILY. Diclofenac 2020-0 Yes [id number] APPLY 2 TO Univers Sodium 1 % 1-21 109 4 GRAMS TO ity of gel 00:00: THE [place] AFFECTED Medical AREA FOUR Branch TIMES DAILY. Diclofenac 2020-0 Yes [id number] APPLY 2 TO Univers Sodium 1 % 1-21 109 4 GRAMS TO ity of gel 00:00: THE [place] AFFECTED Medical AREA FOUR Branch TIMES DAILY. Diclofenac 2020-0 Yes [id number] APPLY 2 TO Univers Sodium 1 % 1-21 109 4 GRAMS TO ity of gel 00:00: THE [place] AFFECTED Medical AREA FOUR Branch TIMES DAILY. Diclofenac 2020-0 Yes [id number] APPLY 2 TO Univers Sodium 1 % 1-21 109 4 GRAMS TO ity of gel 00:00: THE [place] AFFECTED Medical AREA FOUR Branch TIMES DAILY. Diclofenac 2020-0 Yes [id number] APPLY 2 TO Univers Sodium 1 % 1-21 109 4 GRAMS TO ity of gel 00:00: THE [place] AFFECTED Medical AREA FOUR Branch TIMES DAILY. REPATHA 2019-0 Yes Univers SYRINGE 140 5-15 ity of mg/mL Syrg 00:00: [place] [facility] REPATHA 2019-0 Yes Univers SYRINGE 140 5-15 ity of mg/mL Syrg 00:00: Medical Branch REPATHA 2019-0 Yes Univers SYRINGE 140 5-15 ity of mg/mL Syrg 00:00: [place] [facility] REPATHA 2019-0 Yes Univers SYRINGE 140 5-15 ity of mg/mL Syrg 00:00: [place] [facility] REPATHA 2019-0 Yes Univers SYRINGE 140 5-15 ity of mg/mL Syrg 00:00: [place] [facility] REPATHA 2019-0 Yes Univers SYRINGE 140 5-15 ity of mg/mL Syrg 00:00: [place] [facility] REPATHA 2019-0 Yes Univers SYRINGE 140 5-15 ity of mg/mL Syrg 00:00: [place] [facility] Univers SYRINGE 140 5-15 ity of mg/mL Syrg 00:00: [place] [facility] REPATHA 2019-0 Yes Univers SYRINGE 140 5-15 ity of mg/mL Syrg 00:00: [place] [facility] Yes Univers SYRINGE 140 5-15 ity of mg/mL Syrg 00:00: [place] [facility] Yes Univers SYRINGE 140 5-15 ity of mg/mL Syrg 00:00: [place] [facility] Univers SYRINGE 140 5-15 ity of mg/mL Syrg 00:00: [place] [facility] Yes Univers SYRINGE 140 5-15 ity of mg/mL Syrg 00:00: [place] [facility] 2019-[facility] Yes Univers SYRINGE 140 5-15 ity of mg/mL Syrg 00:00: [place] [id number] 0 Yes TK ONE C Un pato mcg Cap 4-24 PO D. ity of 00:00: [place] [id number] 0 Yes TK ONE C Un pato mcg Cap 4-24 PO D. ity of 00:00: [place] [facility] 290 2018-0 Yes TK ONE C Un pato mcg Cap 4-24 PO D. ity of 00:00: [place] [address] 2018-0 Yes TK ONE C Un pato mcg Cap 4-24 PO D. ity of 00:00: [place] [address] 2018-0 Yes TK ONE C Un pato mcg Cap 4-24 PO D. ity of 00:00: [place] [facility] 290 2018-0 Yes TK ONE C Un pato mcg Cap 4-24 PO D. ity of 00:00: [place] [address] 2018-0 Yes TK ONE C Un pato mcg Cap 4-24 PO D. ity of 00:00: [place] 00 Medical Branch LINZESS 290 2019-0 Yes TK ONE C Un pato mcg Cap 4-24 PO D. ity of 00:00: Medical Branch LINZ[facility] 290 2019-0 Yes TK ONE C Un pato mcg Cap 4-24 PO D. ity of 00:00: [place] [facility] LINZ[facility] 290 2019-0 Yes TK ONE C Un pato mcg Cap 4-24 PO D. ity of 00:00: [place] [facility] LINZESS 290 2019-0 Yes TK ONE C Un pato mcg Cap 4-24 PO D. ity of 00:00: [place] [facility] LINZ[facility] 290 2019-0 Yes TK ONE C Un pato mcg Cap 4-24 PO D. ity of 00:00: [place] [facility] LINZESS 290 2019-0 Yes TK ONE C Un pato mcg Cap 4-24 PO D. ity of 00:00: [place] [facility] LINZESS 290 2019-0 Yes TK ONE C Un pato mcg Cap 4-24 PO D. ity of 00:00: [place] [facility] gabapentin 2018-0 Yes TAKE 1 Unive rs 400 mg 3-22 CAPSULE ity of capsule 00:00: TWICE A [place] DAY ORALLY Medical 30 DAY(S) Branch gabapentin 2018-0 Yes TAKE 1 Unive rs 400 mg 3-22 CAPSULE ity of capsule 00:00: TWICE A [place] DAY ORALLY Medical 30 DAY(S) Branch gabapentin 2018-0 Yes TAKE 1 Unive rs 400 mg 3-22 CAPSULE ity of capsule 00:00: TWICE A [place] DAY ORALLY Medical 30 DAY(S) Branch gabapentin 2018-0 Yes TAKE 1 Unive rs 400 mg 3-22 CAPSULE ity of capsule 00:00: TWICE A [place] DAY ORALLY Medical 30 DAY(S) Branch gabapentin 2018-0 Yes TAKE 1 Unive rs 400 mg 3-22 CAPSULE ity of capsule 00:00: TWICE A DAY ORALLY Medical 30 DAY(S) Branch gabapentin 2018-0 Yes TAKE 1 Unive rs 400 mg 3-22 CAPSULE ity of capsule 00:00: TWICE A [place] DAY ORALLY Medical 30 DAY(S) Branch gabapentin 2018-0 Yes TAKE 1 Unive rs 400 mg 3-22 CAPSULE ity of capsule 00:00: TWICE A [place] DAY ORALLY Medical 30 DAY(S) Branch gabapentin 2018-0 Yes TAKE 1 Unive rs 400 mg 3-22 CAPSULE ity of capsule 00:00: TWICE A DAY ORALLY Medical 30 DAY(S) Branch gabapentin 2017-0 Yes TAKE 1 Unive rs 400 mg 3-22 CAPSULE ity of capsule 00:00: TWICE A DAY ORALLY Medical 30 DAY(S) Branch gabapentin 2017-0 Yes TAKE 1 Unive rs 400 mg 3-22 CAPSULE ity of capsule 00:00: TWICE A DAY ORALLY Medical 30 DAY(S) Branch gabapentin 2017-0 Yes TAKE 1 Unive rs 400 mg 3-22 CAPSULE ity of capsule 00:00: TWICE A DAY ORALLY Medical 30 DAY(S) Branch gabapentin 2017-0 Yes TAKE 1 Unive rs 400 mg 3-22 CAPSULE ity of capsule 00:00: TWICE A ORALLY Medical 30 DAY(S) Branch gabapentin 2017-0 Yes TAKE 1 Unive rs 400 mg 3-22 CAPSULE ity of capsule 00:00: TWICE A ORALLY Medical 30 DAY(S) Branch gabapentin 2017-0 Yes TAKE 1 Unive rs 400 mg 3-22 CAPSULE ity of capsule 00:00: TWICE A DAY ORALLY Medical 30 DAY(S) Branch ALPRAZolam Yes TAKE 1 Unive rs 2 mg tablet 3-18 TABLET BY ity of 00:00: MOUTH 3 TIMES A Medical DAY Branch NEEDED FOR ANXIETY ALPRAZolam Yes TAKE 1 Unive rs 2 mg tablet 3-18 TABLET BY ity of 00:00: MOUTH 3 TIMES A Medical DAY Branch NEEDED FOR ANXIETY ALPRAZolam Yes TAKE 1 Unive rs 2 mg tablet 3-18 TABLET BY ity of 00:00: MOUTH 3 TIMES A Medical DAY Branch NEEDED FOR ANXIETY ALPRAZolam Yes TAKE 1 Unive rs 2 mg tablet 3-18 TABLET BY ity of 00:00: MOUTH 3 TIMES A Medical DAY Branch NEEDED FOR ANXIETY ALPRAZolam Yes TAKE 1 Unive rs 2 mg tablet 3-18 TABLET BY ity of 00:00: MOUTH 3 TIMES A Medical DAY Branch NEEDED FOR ANXIETY ALPRAZolam Yes TAKE 1 Unive rs 2 mg tablet 3-18 TABLET BY ity of 00:00: MOUTH 3 [place] 00 TIMES A Medical DAY Branch NEEDED FOR ANXIETY ALPRAZolam 2018 Yes TAKE 1 Unive rs 2 mg tablet 3-18 TABLET BY ity of 00:00: MOUTH 3 00 TIMES A Medical DAY Branch NEEDED FOR ANXIETY ALPRAZolam 2018 Yes TAKE 1 Unive rs 2 mg tablet 3-18 TABLET BY ity of 00:00: MOUTH 3 [place] 00 TIMES A Medical DAY Branch NEEDED FOR ANXIETY ALPRAZolam Yes TAKE 1 Unive rs 2 mg tablet 3-18 TABLET BY ity of 00:00: MOUTH 3 TIMES A Medical DAY Branch NEEDED FOR ANXIETY ALPRAZolam Yes TAKE 1 Unive rs 2 mg tablet 3-18 TABLET BY ity of 00:00: MOUTH 3 TIMES A Medical DAY Branch NEEDED FOR ANXIETY ALPRAZolam Yes TAKE 1 Unive rs 2 mg tablet 3-18 TABLET BY ity of 00:00: MOUTH 3 00 TIMES A Medical DAY Branch NEEDED FOR ANXIETY ALPRAZolam Yes TAKE 1 Unive rs 2 mg tablet 3-18 TABLET BY ity of 00:00: MOUTH 3 TIMES A Medical DAY Branch NEEDED FOR ANXIETY ALPRAZolam Yes TAKE 1 Unive rs 2 mg tablet 3-18 TABLET BY ity of 00:00: MOUTH 3 TIMES A Medical DAY Branch NEEDED FOR ANXIETY ALPRAZolam Yes TAKE 1 Unive rs 2 mg tablet 3-18 TABLET BY ity of 00:00: MOUTH 3 00 TIMES A Medical DAY Branch NEEDED FOR ANXIETY fluticasone Yes INHALE 1 Un pato 50 3-17 SPRAY IN ity of mcg/actuati 00:00: EACH [place] on nasal 00 NOSTRIL Medical spray TWICE Branch DAILY fluticasone Yes INHALE 1 Un pato 50 3-17 SPRAY IN ity of mcg/actuati 00:00: EACH [place] on nasal 00 NOSTRIL Medical spray TWICE Branch DAILY fluticasone Yes INHALE 1 Un pato 50 3-17 SPRAY IN ity of mcg/actuati 00:00: EACH on nasal 00 NOSTRIL Medical spray TWICE Branch DAILY fluticasone Yes INHALE 1 Un pato 50 3-17 SPRAY IN ity of mcg/actuati 00:00: EACH [place] on nasal 00 NOSTRIL Medical spray TWICE Branch DAILY fluticasone 2018-0 Yes INHALE 1 Un pato 50 3-17 SPRAY IN ity of mcg/actuati 00:00: EACH [place] on nasal 00 NOSTRIL Medical spray TWICE Branch DAILY fluticasone 2018-0 Yes INHALE 1 Un pato 50 3-17 SPRAY IN ity of mcg/actuati 00:00: EACH [place] on nasal 00 NOSTRIL Medical spray TWICE Branch DAILY fluticasone 2018-0 Yes INHALE 1 Un pato 50 3-17 SPRAY IN ity of mcg/actuati 00:00: EACH [place] on nasal 00 NOSTRIL Medical spray TWICE Branch DAILY fluticasone 2018-0 Yes INHALE 1 Un pato 50 3-17 SPRAY IN ity of mcg/actuati 00:00: EACH [place] on nasal 00 NOSTRIL Medical spray TWICE Branch DAILY fluticasone 2018-0 Yes INHALE 1 Un pato 50 3-17 SPRAY IN ity of mcg/actuati 00:00: EACH [place] on nasal 00 NOSTRIL Medical spray TWICE Branch DAILY fluticasone 2018-0 Yes INHALE 1 Un pato 50 3-17 SPRAY IN ity of mcg/actuati 00:00: EACH [place] on nasal 00 NOSTRIL Medical spray TWICE Branch DAILY fluticasone 2018-0 Yes INHALE 1 Un pato 50 3-17 SPRAY IN ity of mcg/actuati 00:00: EACH [place] on nasal 00 NOSTRIL Medical spray TWICE Branch DAILY fluticasone 2018-0 Yes INHALE 1 Un pato 50 3-17 SPRAY IN ity of mcg/actuati 00:00: EACH [place] on nasal 00 NOSTRIL Medical spray TWICE Branch DAILY fluticasone 2018-0 Yes INHALE 1 Un pato 50 3-17 SPRAY IN ity of mcg/actuati 00:00: EACH [place] on nasal 00 NOSTRIL Medical spray TWICE Branch DAILY fluticasone 2018-0 Yes INHALE 1 Un pato 50 3-17 SPRAY IN ity of mcg/actuati 00:00: EACH [place] on nasal 00 NOSTRIL Medical spray TWICE Branch DAILY sodium 2017- Yes Apply to [facility] 1-10 area(s) 2 ity of e 0.25 % 00:00: (two) [place] 0.25 % Soln 00 times Medical 100 mL, daily. Branch water for irrigation Soln 900 mL sodium 2016-07 Yes Apply to [facility] hypochlorit 1-10 area(s) 2 ity of e 0.25 % 00:00: (two) [place] 0.25 % Soln 00 times Medical 100 mL, daily. Branch water for irrigation Soln 900 mL sodium 2016-07 Yes Apply to [facility] hypochlorit 1-10 area(s) 2 ity of e 0.25 % 00:00: (two) [place] 0.25 % Soln 00 times Medical 100 mL, daily. Branch water for irrigation Soln 900 mL sodium 2016-07 Yes Apply to [facility] hypochlorit 1-10 area(s) 2 ity of e 0.25 % 00:00: (two) [place] 0.25 % Soln 00 times Medical 100 mL, daily. Branch water for irrigation Soln 900 mL sodium 2016-07 Yes Apply to [facility] hypochlorit 1-10 area(s) 2 ity of e 0.25 % 00:00: (two) [place] 0.25 % Soln 00 times Medical 100 mL, daily. Branch water for irrigation Soln 900 mL sodium 2016-07 Yes Apply to [facility] hypochlorit 1-10 area(s) 2 ity of e 0.25 % 00:00: (two) [place] 0.25 % Soln 00 times Medical 100 mL, daily. Branch water for irrigation Soln 900 mL sodium 2016-07 Yes Apply to [facility] hypochlorit 1-10 area(s) 2 ity of e 0.25 % 00:00: (two) [place] 0.25 % Soln 00 times Medical 100 mL, daily. Branch water for irrigation Soln 900 mL sodium 2016-07 Yes Apply to [facility] hypochlorit 1-10 area(s) 2 ity of e 0.25 % 00:00: (two) [place] 0.25 % Soln 00 times Medical 100 mL, daily. Branch water for irrigation Soln 900 mL sodium 2016-07 Yes Apply to [facility] hypochlorit 1-10 area(s) 2 ity of e 0.25 % 00:00: (two) [place] 0.25 % Soln 00 times Medical 100 mL, daily. Branch water for irrigation Soln 900 mL sodium 2016-07 Yes Apply to [facility] hypochlorit 1-10 area(s) 2 ity of e 0.25 % 00:00: (two) [place] 0.25 % Soln 00 times Medical 100 mL, daily. Branch water for irrigation Soln 900 mL sodium 2016-07 Yes Apply to [facility] hypochlorit 1-10 area(s) 2 ity of e 0.25 % 00:00: (two) [place] 0.25 % Soln 00 times Medical 100 mL, daily. Branch water for irrigation Soln 900 mL sodium 2016-07 Yes Apply to [facility] hypochlorit 1-10 area(s) 2 ity of e 0.25 % 00:00: (two) [place] 0.25 % Soln 00 times Medical 100 mL, daily. Branch water for irrigation Soln 900 mL sodium 2016-07 Yes Apply to [facility] hypochlorit 1-10 area(s) 2 ity of e 0.25 % 00:00: (two) [place] 0.25 % Soln 00 times Medical 100 mL, daily. Branch water for irrigation Soln 900 mL sodium 2016-07 Yes Apply to [facility] hypochlorit 1-10 area(s) 2 ity of e 0.25 % 00:00: (two) [place] 0.25 % Soln 00 times Medical 100 mL, daily. Branch water for irrigation Soln 900 mL Vital Signs Vital Name Observation Time Observation Value Comments Source Body weight 2022-12-07 19:40:00 112.946 kg [facility] BMI 2022-12-07 19:40:00 45.54 kg/m2 [facility] Systolic blood 2022-11-21 21:11:00 121 mm[Hg] [facility] pressure Diastolic blood 2022-11-21 21:11:00 79 mm[Hg] [facility] pressure Heart rate 2022-11-21 21:11:00 64 /min [facility] Body temperature 2022-11-21 21:11:00 36.67 Bernie [facility] Body height 2022-06-01 14:10:00 154.9 cm [facility] Body weight 2022-06-01 14:10:00 109.317 kg [facility] BMI 2022-06-01 14:10:00 45.54 kg/m2 [facility] Procedures Procedure Date / Time Performing Clinician Source Performed OCT, OPTIC NERVE - OU - 2022-12-07 20:08:03 Dayana Gaitan [facility] BOTH EYES Medical Branch CONSENT/REFUSAL FOR 2022-12-07 18:56:47 Doctor Unassigned, No [facility] DIAGNOSIS AND TREATMENT Name Medical Branch OPHTHALMOLOGY DIAGNOSTIC 2022-05-11 05:01:00 Doctor Unassigned, No [facility] TEST Name Medical Branch OU GONIOSCOPY, BOTH EYES 2022-05-11 00:00:[address] [facility] OU VISUAL FIELD EXAM 2022-05-11 00:00:00 Dayana Gaitan [facility] EXTENDED (24-2), BOTH Medical Br anch EYES OU CORNEAL PACHYMETRY, 2022-01-31 00:00:00 Dayana Gaitan [facility] BOTH EYES Medical Branch OU SPECTRALIS OCT OPTIC 2022-01-31 00:00:00 Dayana Gaitan [facility] NERVE, BOTH EYES Medical Branch Plan of Care Planned Activity Planned Date Details Comments Source Future Scheduled 2023-05-12 [facility]ACCINE [facility] Test 12:52:57 (#1) [code = COVID-19 VACCINE (#1)] Future Scheduled 2023-05-12 [facility] Test 12:52:57 screening (procedure) [code = 660285354] Future Scheduled 2023-05-12 Screening for [facility] Test 12:52:57 malignant neoplasm of cervix (procedure) [code = 800845262] Future Scheduled 2023-05-12 SHINGLES VACCINES [facility] Test 12:52:57 (1 of 2) [code = SHINGLES VACCINES (1 of 2)] Future Scheduled 2023-05-12 BREAST CANCER [facility] Test 12:52:57 SCREENING [code = BREAST CANCER SCREENING] Future Scheduled 2023-05-12 INFLUENZA VACCINE [facility] Test 12:52:57 (#1) [code = INFLUENZA VACCINE (#1)] Encounters Start End Encounter Admission Attending Care Care Encounter Source Date/Time Date/Time Type Type Clinicians Facility Department ID 2021-05-16 Emergency [facility] [id number] [facility] [facility]-08 2023-03-08 Outpatient GC_GCBZW_Ka PRIV PRIV [id number] [facility] 00:00:00 00:00:00 diyala_S [id number] Medic al 2023-03-08 2023-03-08 Outpatient GC_GCBZW_Ka PRIV PRIV [id number] [facility] 00:00:00 00:00:00 diyala_S [id number] Medic al 2023-03-08 2023-03-08 Outpatient GC_GCBZW_Ka PRIV PRIV [id number] [facility] 00:00:00 00:00:00 diyala_S [id number] Medic al 2023-03-08 2023-03-08 Outpatient GC_GCBZW_Ka PRIV PRIV [id number] [facility] 00:00:00 00:00:00 diyala_S [id number] Medic al 2023-03-06 2023-03-06 Outpatient GC_GCBZW_Ka PRIV PRIV [id number] [facility] 00:00:00 00:00:00 diyala_S [id number] Medic al 2023-03-06 2023-03-06 Outpatient GC_GCBZW_Ka PRIV PRIV [id number] [facility] 00:00:00 00:00:00 diyala_S [id number] Medic al 2023-02-15 2023-02-15 Telephone Dayana Gaitan [facility] [id number] Univers 00:00:00 00:00:00 R HEALTH 350.1.13.10 it y of EYE 4.2.7.2.686 [facility] [id number] [facility] 136 Branch 2023-02-02 2023-02-02 Outpatient GC_GCBZW_Ka PRIV PRIV [id number] [facility] 00:00:00 00:00:00 diyala_S [id number] Medic al 2023-02-02 2023-02-02 Outpatient GC_GCBZW_Ka PRIV PRIV [id number] [facility] 00:00:00 00:00:00 diyala_S [id number] Medic al 2023-02-01 2023-02-01 Outpatient GC_GCBZW_Ka PRIV PRIV [id number] [facility] 00:00:00 00:00:00 diyala_S [id number] Medic al 2023-01-30 2023-01-30 Outpatient GC_GCBZW_Ka PRIV PRIV [id number] [facility] 00:00:00 00:00:00 diyala_S [id number] Medic al 2023-01-29 2023-01-29 Outpatient GC_GCBZW_Ka PRIV PRIV [id number] [facility] 00:00:00 00:00:00 diyala_S [id number] Medic al 2022-12-12 2022-12-12 Outpatient R ELIZABET [facility] [id number] Univers 14:12:15 23:59:00 TAMMY ity of [facility] 2022-12-12 2022-12-12 [facility] 1.2.840.114 [id number] Univers 14:12:15 23:59:00 Encounter Tammy TYLER 350.1.13.10 ity [place] [id number] [facility] 800 Branch 2022-12-07 2022-12-07 Outpatient R DAYANA GAITAN [facility] [id number] Univers 14:15:00 15:25:25 ity of [facility] 2022-12-07 2022-12-07 Office Dayana Gaitan [facility] 1.2.840.114 [id number] Univers 14:15:00 15:25:25 Visit R HEALTH 350.1.13.10 it y of EYE 4.2[address]7.[address] [facility] [address] [facility] [id number] [facility] 136 Branch 2022-12-07 2022-12-07 Orders Doctor DEEPA 1.2.840.114 [id number] Univers 00:00:00 00:00:00 Only Unassigned, [place] 350.1.13.10 ity of [place] [facility] 4.2.7.2.686 Serjio [id number] [facility] 009 Branch 2022-11-27 2022-11-27 Telephone Dayana Gaitan [facility] 1.2.840.114 [id number] Univers 00:00:00 00:00:00 R HEALTH 350.1.13.10 [place] [id number] [facility] 136 Branch 2022-11-21 2022-11-21 Office [place], 1.2.840.1 [id number] [facility] 16:00:00 16:42:23 Visit Vitor 83917.1.[address] [facility] 3.430.2.7 Hospit a .3.729639 l .8 2022-11-21 2022-11-21 Outpatient ARMINDA [facility] [id number] [place] 00:00:00 00:00:[address] 2022-11-21 2022-11-21 Travel 1.2.840.1 [id number] [id number] [facility] 00:00:00 00:00:[address] 3.430.2.7 0.2.7.3.698 Ho spita .3.235590 084.8 l .8 2022-11-13 2022-11-13 Telephone Dayana Gaitan [facility] 1.2.840.114 [id number] Univers 00:00:00 00:00:00 R HEALTH 350.1.13.10 it y of [place] 4.2.7.2.686 [facility] [place] [id number] [facility] 136 Branch 2022-11-09 2022-11-09 Outpatient R DAYANA GAITAN [facility] [id number] Univers 09:45:00 09:45:00 ity of [facility] 2022-09-27 2022-09-27 Patient Doctor UNIVERSIT 1.2.314.347 [id number] Univers 00:00:00 00:00:00 Secure Msg Unassigned, Y HEALTH 350.1.13.10 ity of [place] [facility] [place] [id number] [facility] 804 Branch 2022-09-11 2022-09-[address] [facility] 1.2.840.11 [id number] Univers 00:00:00 00:00:00 R Y 350.1.13.10 it y of [place] 4.2.7.2.686 Serjio as BANK [id number] [facility] 136 Branch 2022-08-16 2022-08-16 Orders Conner, 1.2.840.1 [id number] [facility] 00:00:00 00:00:00 Only Mckenzie 57249.1.[address] 3.430.2.7 Hospit a .3.887039 l .8 2022-08-04 2022-08-04 Travel 1.2.840.1 1.2.203.801 [id number] [facility] 00:00:00 00:00:[address] 3.430.2.7 0.2.7.3.698 Ho spita .3.403678 084.8 l .8 2022-06-01 2022-06-01 Hospital Sun, 1.2.840.1 [id number] [facility] 08:14:22 23:59:00 Encounter Vitor 76826.1.[address] Yuan 3.430.2.7 Hospit a .3.841663 l .8 2022-06-01 2022-06-01 Office Sun, 1.2.840.1 [id number] [facility] 08:00:00 08:39:19 Visit Vitor 76166.1.[address] Yuan 3.430.2.7 Hospit a .3.206639 l .8 2022-06-01 2022-06-01 Outpatient [facility] [id number] [place] 00:00:00 00:00:00 VITOR [address] 2022-06-01 2022-06-01 Outpatient [facility] [id number] [place] 00:00:00 00:00:00 VITOR [address] 2022-06-01 2022-06-01 Outpatient [facility] [id number] [place] 00:00:00 00:00:[address] VITOR [address] 2022-06-01 2022-06-01 Orders Sun, 1.2.840.1 [id number] [facility] 00:00:00 00:00:00 Only Vitor 22047.1.[address] Yuan 3.430.2.7 Hospit a .3.095962 l .8 2022-06-01 2022-06-01 Travel 1.2.840.1 1.2.701.898 [id number] [facility] 00:00:00 00:00:[address] 3.430.2.7 0.2.7.3.698 Ho spita .3.405467 084.8 l .8 2022-05-11 2022-05-11 Outpatient R KANDY DAYANA [facility] [id number] Univers 15:00:00 16:20:04 ity of [facility] 2022-05-11 2022-05-11 Office [facility] 1.2.840.114 [id number] Univers 15:00:00 16:20:04 Visit R HEALTH 350.1.13.10 it y of E[facility] 4.2.7.[address] [facility] [id number] [address] 2022-05-11 2022-05-11 Orders Doctor DEEPA 1.2.840.114 [id number] Univers 00:00:00 00:00:00 Only Unassigned, MODESTA 350.1.13.10 ity of [place] [facility] 4.2.7.2.686 Serjio as [id number] [address] 2022-04-06 2022-04-06 Outpatient R KANDY [facility] [id number] Univers 15:00:00 15:00:00 ity of [facility] 2022-01-31 2022-01-31 Outpatient R KANDY [facility] [id number] Univers 14:45:00 15:44:26 ity [facility] 2022-01-31 2022-01-31 Office [facility] [facility] 1.2.840.114 [id number] Univers 14:45:00 15:44:26 Visit R HEALTH 350.1.13.10 it y of EYE 4.2.7.2.[address] [facility] MUR[facility] [phone] [address] 2022-01-27 2022-01-27 Orders Doctor DEEPA 1.2.840.114 [id number] Univers 00:00:00 00:00:00 Only Unassigned, MODESTA 350.1.13.10 ity of [place] [facility] 4.2.7.2.686 Serjio as [phone] [facility] [address] [place] 2021-12-29 2021-12-29 Outpatient R RADIOLOGY [facility] [id number] Univers 15:21:06 23:59:00 ity of [facility] 2021-12-29 2021-12-29 Hospital Radiology [facility] 1.2.840.114 [id number] Univers 15:21:06 23:59:00 Encounter AN[place] 350.1.13.10 ity [facility] 4.2.7.2.686 [facility] [phone] [facility] [address] 2021-12-29 2021-12-29 Outpatient R RADIOLOGY [facility] [id number] Univers 00:00:00 00:00:00 ity of [facility] 2021-12-29 2021-12-29 Orders Doctor ARENAS 1.2.840.114 [id number] Univers 00:00:00 00:00:00 Only Unassigned, MODESTA 350.1.13.10 ity of [place] [facility] 4.2.7.2.686 Serjio as [phone] [address] 2021-12-09 2021-12-09 Outpatient R [facility] [id number] Univers 13:59:56 23:59:00 TAMMY ity [facility] 2021-12-09 2021-12-09 [facility] 1.2.840.114 [id number] Univers 13:59:56 23:59:00 Encounter Tammy MATTIE 350.1.13.10 ity [facility] 4.2.7.2.686 [facility] [phone] [facility] [address] [place] 2021-12-09 2021-12-09 Outpatient R [facility] [id number] Univers 00:00:00 00:00:00 TAMMY ity [facility] 2021-11-29 2021-11-29 [facility]phone [facility] 1.2.840.114 [id number] Univers 00:00:00 00:00:00 Josué Damon HEALTH 350.1.13.10 it y of [place] 4.2.7.2.686 Serjio as GARY?BLEA [phone] Me tito LOPEZ 198 [facility] OFFICE [facility] 2021-11-16 2021-11-16 Telephone [facility] 1.2.840.114 [id number] Univers 00:00:00 00:00:00 Josué Damon HEALTH 350.1.13.10 it y of [place] 4.2.7.2.686 Serjio as GARY?BLEA [phone] Sd tito LOPEZ 198 [facility] 2021-11-16 2021-11-16 Orders Doctor DEEPA 1.2.840.114 [id number] Univers 00:00:00 00:00:00 Only Unassigned, MODESTA 350.1.13.10 ity of [place] [facility] 4.2.7.2.686 Serjio as [phone] [address] 2021-11-14 2021-11-14 Outpatient GREENBERG, MARVIN [facility] [id number] [place] 00:00:00 00:00:00 724 Method i 2021-11-14 2021-11-14 Outpatient GREENBERG, MARVIN [facility] [id number] [place] 00:00:00 00:00:00 500 Method i 2021-11-14 2021-11-14 Outpatient GREENBERG, MARVIN [facility] [id number] [place] 00:00:00 00:00:00 515 Method i 2021-10-20 2021-10-20 Office [facility] 1.2.840.114 [id number] Univers 13:30:00 13:45:00 Visit Yao [facility] 350.1.13.10 it y of [place] 4.2.7.2.686 Serjio as GARY?BLEA [phone] Sd tito LOPEZ [address] [place] [address] 2021-10-20 2021-10-20 Outpatient R AMILCAR [facility] [id number] Univers 13:30:00 13:30:00 YAO steinberg [facility] 2021-10-20 2021-10-20 Orders Doctor DEEPA 1.2.840.114 [id number] Univers 00:00:00 00:00:00 Only Unassigned, MODESTA 350.1.13.10 ity of [place] [facility]OSPITAL 4.2.7.2.686 Serjio as [phone] [address] 2021-09-01 2021-09-01 Outpatient R AMILCAR [facility] [id number] Univers 13:15:00 13:15:00 [facility] 2021-08-08 2021-08-08 Outpatient R ELIZABET [facility] [id number] Univers 15:00:00 15:00:00 [facility] 2021-08-08 2021-08-08 Outpatient R ELIZABET [facility] [id number] Univers 00:00:00 00:00:00 [facility] 2021-08-03 2021-08-03 Outpatient [facility] [id number] Univers 15:15:00 15:15:00 [facility] 2021-07-27 2021-07-27 Outpatient [facility] [id number] Univers 15:15:00 15:15:00 [facility] 2021-07-18 2021-07-18 Orders Doctor ARENAS 1.2.840.114 [id number] Univers 00:00:00 00:00:00 Only Unassigned, MODESTA 350.1.13.10 ity of [place] [facility] 4.2.7.2.686 Serjio as [phone] [address] 2021-06-17 2021-06-17 Orders Doctor DEEPA 1.2.840.114 [id number] Univers 00:00:00 00:00:00 Only Unassigned, MODESTA 350.1.13.10 ity of [place] [facility]OSPITAL 4.2.7.2.686 Serjio as [phone] [address] 2021-05-25 2021-05-25 Office [facility] 1.2.840.114 [id number] Univers 15:00:00 15:07:21 Visit [facility] 350.1.13.10 it y of [place] 4.2.7.2.686 Serjio as GARY?BLEA [phone] Sd tito OLPEZ 198 [facility] OFFICE [facility] 2021-05-25 2021-05-25 Outpatient [facility] [id number] Univers 15:00:00 15:07:21 [facility]-05-25 2021-05-25 Outpatient [facility] [id number] Univers 15:00:00 15:00:00 [facility] 2021-05-18 2021-05-18 Out[facility] [id number] Univers 15:00:00 15:26:40 [facility] 2021-05-18 2021-05-18 Office [facility] 1.2.840.114 [id number] Univers 14:34:23 15:26:40 Visit [facility] 350.1.13.10 it y of [place] 4.2.7.2.686 Serjio as GARY?BLEA [phone] Sd tito LOPEZ [address] [place] [address] 2021-05-18 2021-05-18 Outpatient [facility] [id number] Univers 15:00:00 15:00:00 [facility] 2021-05-13 2021-05-13 Telephone [facility] 1.2.840.114 [id number] Univers 00:00:00 00:00:00 [facility] 350.1.13.10 it [facility] 4.2.7.2.686 Serjio as GARY?BLEA [phone] Sd tito LOPEZ [address] [place] [address] OFFICE [facility] 2021-05-11 2021-05-11 Outpatient [facility] [id number] Univers 16:00:00 16:00:00 [facility] 2021-05-11 2021-05-11 Office [facility] 1.2.840.114 [id number] Univers 15:38:16 15:53:16 Visit [facility] 350.1.13.10 it y of [place] 4.2.7.2.686 Serjio as Gary?Blea [phone] Sd tito lopez [address] [place] [address] Office [facility] 2021-05-10 2021-05-10 Outpatient R AMILCAR [facility] [id number] Univers 15:45:00 15:45:00 YAO itmaday [facility] 2021-05-06 2021-05-06 Telephone [facility] 1.2.206.667 [id number] Univers 00:00:00 00:00:00 [facility] Health 350.1.13.10 it y of [place] 4.2.7.2.686 Serjio as Gary?Blea [phone] Sd tito lopez [address] [place] [address] Office [facility] 2021-05-05 2021-05-05 Orders Doctor DEEPA 1.2.840.114 [id number] Univers 00:00:00 00:00:00 Only Unassigned, MODESTA 350.1.13.10 ity of [place] HOSPITAL 4.2.7.2.686 Serjio as [phone] [address] 2021-05-04 2021-05-04 Outpatient R FLYNN [facility] [id number] Univers 14:45:00 14:45:00 JOSUÉ itmaday [facility] 2021-04-25 2021-04-25 Office [facility] 1.2.840.114 [id number] Univers 15:15:00 15:52:31 Visit [facility] 350.1.13.10 it y of [place] 4.2.7.2.686 Serjio as GARY?BLEA [phone] Sd tito LOPEZ [address] [place] [address] OFFICE [facility] 2021-04-25 2021-04-25 Outpatient R AMILCAR [facility] [id number] Univers 15:15:00 15:52:31 YAO itmaday [facility] 2021-04-25 2021-04-25 Office [facility] 1.2.840.114 [id number] Univers 14:51:53 15:52:31 Visit [facility] Health 350.1.13.10 it y of [place] 4.2.7.2.686 Serjio as Gary?Blea [phone] Sd tito lopez [address] [place] [address] Office [facility] 2021-04-25 2021-04-25 Out[facility] [id number] Univers 15:15:00 15:15:00 YAO [facility] 2021-04-24 2021-04-24 Telephone [facility] 1.2.956.939 [id number] Univers 00:00:00 00:00:00 Yao S Health 350.1.13.10 it y of [place] 4.2.7.2.686 Serjio as Gary?Blea [phone] Me dical kney 198 [facility] Office [facility] 2021-04-18 2021-04-18 [facility] 1.2.840.114 [id number] Univers 15:30:00 23:59:00 Encounter Yao S Health 350.1.13.10 ity of [place] 4.2.7.2.686 Serjio as Gary?Blea [phone] Me dical kney 809 [facility] 2021-04-18 2021-04-18 Office [facility] 1.2.840.114 [id number] Univers 14:53:42 15:08:42 Visit Yao S Health 350.1.13.10 it y of [place] 4.2.7.2.686 Serjio as Gary?Blea [phone] Sd dical kney 198 [facility] 2021-04-18 2021-04-18 Outpatient Isabel [facility] [id number] Univers 15:00:00 15:00:00 [facility] 2021-04-11 2021-04-11 Telephone [facility] 1.2.840.114 [id number] Univers 00:00:00 00:00:00 Josué Damon [place] 350.1.13.10 i ty of [place].2.7.2.686 [place] [phone] Me dical nal 198 [facility] 2021-04-04 2021-04-04 [facility] 1.2.840.114 [id number] Univers 15:40:00 23:59:00 Encounter Yao S Health 350.1.13.10 ity of [place] 4.2.7.2.686 Serjio as Gary?Blea [phone] Me dical kney 809 [facility] Office [facility] 2021-04-04 2021-04-04 Office [facility] 1.2.840.114 [id number] Univers 15:00:19 15:15:19 Visit [facility] 350.1.13.10 it y of [place] 4.2.7.2.686 Serjio as Gary?Blea [phone] Sd tito lopez 198 [facility] Office [facility] 2021-04-04 2021-04-04 Outpatient [facility] [id number] Univers 15:15:00 15:15:00 YAO ity of [facility] 2021-03-30 2021-03-30 Telephone [facility] 1.2.840.114 [id number] Univers 00:00:00 00:00:00 [facility] Telerivet 350.1.13.10 it y of [place] 4.2.7.2.686 Serjio as Gary?Blea [phone] Sd tito lopez 198 [facility] 2021-01-28 2021-01-28 Telephone [facility] 1.2.840.114 [id number] Univers 00:00:00 00:00:00 [facility] 350.1.13.10 it y of Surgical 4.2.7.2.686 Serjio as Specialti [phone] Sd tito rose 198 [facility] 2021-01-19 2021-01-19 Emergency [facility] 1.2.838.820 [id number] Univers 07:06:00 09:37:00 Serafin [place] 350.1.13.10 i ty of [place] 4.2.7.2.686 [place] [phone] [facility] [address] [place] 2020-12-09 2020-12-09 Patient Doctor DEEPA 1.2.840.114 [id number] Univers 00:00:00 00:00:00 Secure Msg Unassigned, MODESTA 350.1.13.10 ity of [place] [facility] 4.2.7.2.686 Serjio as [phone] [facility] [address] [place] 2020-12-08 2020-12-08 Office [facility] 1.2.840.114 [id number] Univers 15:18:38 15:33:38 Visit Yao Tran [facility] 350.1.13.10 it y of Surgical 4.2.7.2.686 Serjio as Specialti [id number] Sd dical es 198 [facility] 2020-12-08 2020-12-08 Outpatient Isabel FITZGERALD [facility] [id number] Univers 15:30:00 15:30:00 YAO steinberg [facility] 2020-12-07 2020-12-07 Outpatient Isabel FITZGERALD [facility] [id number] Univers 14:45:00 14:45:00 YAO steinberg [facility] 2020-12-01 2020-12-01 Outpatient Isabel PRUETT [facility] [id number] Univers 13:42:07 23:59:00 JOSUÉ itmaday [facility] 2020-12-01 2020-12-01 [facility] 1.2.840.114 [id number] Univers 13:42:07 23:59:00 Encounter [place]ué [place] 350.1.13.10 ity [facility] 4.2.7.2.686 [place] [facility] [phone] [facility] [address] [place] 2020-12-01 2020-12-01 Outpatient Isabel PRUETT [facility] [id number] Univers 00:00:00 00:00:00 JOSUÉ steinberg [facility] 2020-11-15 2020-11-15 Orders Doctor ARENAS 1.2.840.114 [id number] Univers 00:00:00 00:00:00 Only Unassigned, MODESTA 350.1.13.10 ity of [place] [facility] 4.2.7.2.686 Serjio as [phone] [facility] [address] [place] 2020-11-11 2020-11-11 Outpatient [facility] [id number] Univers 00:00:00 00:00:00 JOSUÉ steinberg [facility] 2020-11-08 2020-11-08 Telephone [facility] 1.2.871.670 [id number] Univers 00:00:00 00:00:00 Yao S [facility] 350.1.13.10 it y of Surgical 4.2.7.2.686 Serjio as Specialti [phone] Me dical es 198 [facility] 2020-11-05 2020-11-05 Telephone [facility] 1.2.840.114 [id number] Univers 00:00:00 00:00:00 Josué Candelaria 350.1.13.10 it y of Surgical 4.2.7.2.686 Serjio as Specialti [phone] Me dical es 198 [facility] 2020-11-04 2020-11-04 [facility] 1.2.840.114 [id number] Univers 15:49:55 23:59:00 Encounter [facility] 350.1.13.10 ity of Surgical 4.2.7.2.686 Serjio as Specialti [phone] Me dical es 809 [facility] 2020-11-04 2020-11-04 Office [facility] 1.2.840.114 [id number] Univers 14:16:21 16:10:38 Visit [facility] 350.1.13.10 it y of Surgical 4.2.7.2.686 Serjio as Specialti [phone] Me dical es 198 [facility] 2020-11-04 2020-11-04 Outpatient [facility] [id number] Univers 14:30:00 14:30:00 [facility] 2020-11-02 2020-11-02 Outpatient [facility] [id number] Univers 10:30:00 10:30:00 [facility] 2020-10-27 2020-10-27 Telephone [facility] 1.2.840.114 [id number] Univers 00:00:00 00:00:00 Josué Hernadez 350.1.13.10 i ty of [place]2.7.2.[place] [phone] Me dical nal 198 [facility] 2020-09-23 2020-09-23 Outpatient [facility] [id number] Univers 13:15:00 13:15:00 [facility] 2020-09-23 2020-09-23 Office [facility] 1.2.840.114 [id number] Univers 12:55:11 13:10:11 Visit [facility] 350.1.13.10 it y of Surgical 4.2.7.2.686 Serjio as Specialti [phone] Sd dical es 198 [facility] 2020-09-22 2020-09-22 Patient [facility] 1.2.840.114 [id number] Univers 00:00:00 00:00:00 Outreach Girish PRIMARY 350.1.13.10 i ty of [facility] 4.2.7.2.686 [place] [phone] Sd dical [address] [place] 2020-09-16 2020-09-16 Office [facility] 1.2.840.114 [id number] Univers 13:03:20 13:18:20 Visit [facility] 350.1.13.10 it y of Surgical 4.2.7.2.686 Serjio as Specialti [id number] Sd dical es 198 [facility] 2020-09-16 2020-09-16 Outpatient R AMILCAR [facility] [id number] Univers 13:15:00 13:15:00 YAO y [facility] 2020-09-08 2020-09-08 Office [facility] 1.2.840.114 [id number] Univers 13:48:48 14:11:10 Visit [facility] 350.1.13.10 it y of Surgical 4.2.7.2.686 Serjio as Specialti [phone] Sd dical es 198 [facility] 2020-09-08 2020-09-08 Outpatient R AMILCAR [facility] [id number] Univers 14:00:00 14:00:00 YAO ity [facility] 2020-08-25 2020-08-25 Orders Doctor ARENAS 1.2.840.114 [id number] Univers 00:00:00 00:00:00 Only Unassigned, MODESTA 350.1.13.10 ity of [place] HOSPITAL 4.2.7.2.686 Serjio as [phone] [address] 2020-08-05 2020-08-05 Office [facility] 1.2.840.114 [id number] Univers 13:58:46 14:31:36 Visit Yao Tran [facility] 350.1.13.10 it y of Surgical 4.2.7.2.686 Serjio as Specialti [phone] Sd dical es 198 [facility] 2020-08-05 2020-08-05 Outpatient [facility] [id number] Univers 14:15:00 14:15:00 [facility] 2020-07-29 2020-07-29 Outpatient [facility] [id number] Univers 09:15:00 09:15:00 [facility] 2020-07-13 2020-07-13 Outpatient [facility] [id number] Univers 10:15:00 10:15:00 [facility] 2020-05-28 2020-05-28 Letter DEEPA Abbott 1.2.840.114 [id number] Univers 00:00:00 00:00:00 (Out) Luizasarah BYERS 350.1.13.10 it y of HOSPITAL 4.2.7.2.686 Serjio as [phone] [facility] [address] 2020-05-27 2020-05-27 Outpatient [facility] [id number] [place] 00:00:00 00:00:00 SVETANIt[place] 855 Method i 2020 2020 Outpatient [facility] [id number] [place] 00:00:00 00:00:00 SVETANG [address] 2020-05-11 2020-05-11 Orders Doctor ARENAS 1.2.840.114 [id number] Univers 00:00:00 00:00:00 Only Unassigned, MODESTA 350.1.13.10 ity of [place] HOSPITAL 4.2.7.2.686 Serjio as [phone] [facility] [address] 2020-02-13 2020-02-13 Telephone [facility] 1.2.840.114 [id number] Univers 00:00:00 00:00:00 Josué Damon Health 350.1.13.10 it y of Surgical 4.2.7.2.686 Serjio as Specialti [phone] Sd dical es 198 [facility] 2019-10-08 2019-10-08 Outpatient R AMILCAR [facility] [id number] Univers 13:00:00 13:00:00 YAO ity of [facility] 2019-10-08 2019-10-08 Telemedici [facility] 1.2.840.114 [id number] Univers 08:05:11 08:20:11 ne Visit [facility] 350.1.13.10 i ty of Surgical 4.2.7.2.686 Serjio as Specialti [phone] Sd dical es 198 [facility] 2019-08-12 2019-08-12 Orders Doctor DEEPA 1.2.840.114 [id number] Univers 00:00:00 00:00:00 Only Unassigned, MODESTA 350.1.13.10 ity of [place] [facility] 4.2.7.2.686 Serjio as [phone] [address] 2019-08-02 2019-08-02 Refill [facility] 1.2.840.114 [id number] Univers 00:00:00 00:00:00 [facility] Health 350.1.13.10 it y of Surgical 4.2.7.2.686 Serjio as Specialti [phone] Sd dical es 198 [facility] Results Test Description Test Time Test Comments Results Result Comments Source SARS-CoV-2 (COVID-19) RNA [Presence] in Respiratory sp ecimen by 2020 17:40:12 CARLIE with probe detection Test Item Value Reference Range Interpretation Comme nts SARS-CoV-2 (COVID-19) RNA [Presence] in Respiratory Not detected No t-Detected specimen by CARLIE with probe detection (test code = 91133-8) [facility]
[2023-05-31] MEDS ORDERED: PROMETHAZINE INJ 25 MG/ML AMP ONE (13:51)
[2023-05-31] MEDS ORDERED: HOME MED 1 EA UNK (Omeprazole [Prilosec] 40 MG Capsule.Dr) PO SCH (14:00)
[2023-05-31] MEDS ORDERED: HOME MED [FLUTICASONE 50MCG NASAL SPRAY] NAS PRN (14:06)
[2023-05-31] MEDS: DULOXETINE 30 MG CAP PO SCH ×3 (14:09→22:07)
[2023-05-31] MEDS: Ringers Lactate 1,000 ML IV SCH ×3 (14:09→22:06)
[2023-05-31] MEDS: MORPHINE 2 MG/ML SYR IV PRN ×3 (14:09→23:21)
[2023-05-31 16:22] VITALS: BMI 44.8
[2023-05-31] MEDS: PANTOPRAZOLE 40MG TABLET PO SCH (17:09)
[2023-05-31] MEDS ORDERED: PNEUMOCOCCAL VACCINE 0.5 ML IMVAC ONE (20:00)
[2023-05-31] MEDS ORDERED: ALPRAZOLAM 0.5 MG TABLET PO SCH (21:00)
[2023-05-31] MEDS ORDERED: PRAZOSIN HCL 2 MG PO SCH (21:00)
[2023-05-31] MEDS ORDERED: PRAZOSIN HCL 1 MG CAP PO SCH (21:00)
[2023-05-31] MEDS: DICYCLOMINE HCL 10 MG CAP PO SCH (22:07)
[2023-05-31] MEDS: carvediloL 6.25 MG TAB PO SCH (22:07)
[2023-05-31] MEDS ORDERED: ALPRAZOLAM 0.5 MG TABLET PO ONE (23:27)
[2023-06-01] MEDS: Ringers Lactate 1,000 ML IV SCH ×2 (03:00→06:12)
[2023-06-01] MEDS ORDERED: LEVOTHYROXINE SOD 0.05 MG TABLET PO SCH (06:00)
[2023-06-01] MEDS: MORPHINE 2 MG/ML SYR IV PRN (06:12)
[2023-06-01] MEDS: DULOXETINE 30 MG CAP PO SCH (08:13)
[2023-06-01] MEDS: PANTOPRAZOLE 40MG TABLET PO SCH (08:14)
[2023-06-01] MEDS: DICYCLOMINE HCL 10 MG CAP PO SCH (08:14)
[2023-06-01] MEDS: carvediloL 6.25 MG TAB PO SCH (08:14)
[2023-06-01 08:15] VITALS: BP 141/76
[2023-06-01] MEDS ORDERED: BACLOFEN 10 MG TAB PO SCH (09:00)
[2023-06-01] MEDS ORDERED: HOME MED 1 EA UNK (Losartan Potassium [Cozaar] 25 MG Tablet) PO SCH (09:00)
[2023-06-01] MEDS ORDERED: ALPRAZOLAM 0.5 MG TABLET PO SCH (09:00)
[2023-06-01] MEDS ORDERED: LOSARTAN POTASSIUM 50 MG TABLET PO SCH (09:00)
[2023-06-01 12:38] VITALS: TEMP 98; O2SAT 95
--- NOTE | 2023-06-04 12:34 | OP ---
Date of Procedure: 05/31/2023 Surgeon: Torri Townsend MD Preoperative Diagnosis: Symptomatic stage III posterior wall prolapse. Postoperative Diagnoses: Symptomatic stage III posterior wall prolapse, posterior enterocele, and pe rineal body defect. Procedures Performed: 1.Posterior wall defect repair with biologic graft augmentation. 2.Posterior enterocele repair. 3.Bilateral sacrospinous ligament fixation, cervical colpopexy, perineorrhaphy, cystoscopy. Anesthesia: General endotracheal. Estimated Blood Loss: 150 Specimen: None. Findings: cystoscopy with patent ureteric orifices. Complications: No complications. Catheter: Tidwell. Implants: Coloplast allograft. Fluids: 1200 Urine Output: 100 Condition: Transferred to the recovery room in stable condition. 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 After full evaluation clinically, the patient was counseled about her options of pessar y, pelvic floor therapy, and surgery, which included vaginal repair in a site specific fashion, damion castro using a biologic dermal graft if there was a defect that could not be bridged with colpopexy. No anatomical and/or functional defects of the uterus and ovaries, so preservation was planned. Procedure In Detail: After she was consented and medical clearance was obtained, she was brought to the OR. 3 g of Ancef was given. SCDs were placed. Time-out was done. After the patient was placed in a supine fashion and general anesthesia was given, and she was placed in dorsal lithotomy positio n, arms were positioned properly, positioning checked. Vulva, vagina, and perineum were prepped and draped in a sterile fashion using Betadine. Speculum wa s placed to expose the defect and good evaluation was done with the POP-Q as above. Then, Tidwell was placed to drain the bladder, and clamped and retracted superiorly. In the posterior segment of the u terus, a shahab shaped skin incision was made in the lower one-third perineal skin including the ves tibule. After infiltrating with dilute vasopressin 20 units in 60 cc of normal saline, at least 20 m L was injected. Once this area was de-epithelialized, the vaginal epithelial flaps were raised, care fully dissecting the underlying connective tissue and areas where there was . After the edges were raised, the posterior wall in the proximal part was dissected. After 4 cm of th is posterior vaginal wall, there was a large enterocele between the cervix and the cephalad portion o f the rectovaginal septum. It was completely dissected and the enterocele was exposed. The enteroce le sac was not entered. A pursestring 0 Monocryl was placed. Posterior enterocele repair: After the enterocele was identified and clearly dissected from the apex , lateral wall, and inferior rectovaginal septum, this was closed with the help of 3-0 Monocryl and 2 pursestring sutures. Once this was done, attention was directed to the posterior defect repair. Bilateral sacrospinous ligament fixation and cervical colpopexy. The uterus was examined and the who le cervix grasped with an Allis clamp. Fascial dissection was carried all the way to the level of th e cervix. Then the remnants of the uterosacral ligaments were identified. The Capio device was taken and after dissecting the sacrospinous ligament on each side, wi th the coccyx. This ligament was identified, cleaned up on both sides. The enterocele was all repai red. 2-0 Capio Prolene sutures were placed 2 cm medial and posterior to the ischial spine, one sutur e on each side. 2-0 PDS sutures were placed in the midline attaching the cervix and the pericervical ring to the 2-0 PDS sutures that were placed one in the middle and one on either sides of the pericervical ring for r eattachment to the graft. The biologic graft was fashioned into a Y mesh, 8 cm interspinous diameter and posterior diameter of 6 cm. Then the PDS sutures were anchored in the middle and Prolene sutures were anchored to the sacr ospinous ligament with a shekhar stitch with excellent apical support after the procedure was done. Posterior wall repair, lateral [id number] wall; plication was done, then . The fascia at the rectovaginal septum distally was robust and so once the Y flap used and tied down d istally, continuous running suture of 2-0 PDS was taken. The distal part of the graft was attached c ontinuously. Perineal body reconstruction. The perineum edges were freshened up, dissected. Rectovaginal exam wa s performed. No evidence of any trauma and sutures were placed here in this region to reconstruct th e perineal body with interrupted and continuous running 2-0 Vicryl sutures. Once this was reconstruc connor, the rectovaginal septum was brought down to be reattached to the perineal body with a good perin eal lift. The perineum was also cleared up from the debris. The vaginal epithelium was slightly trimmed using curved Andrade and Nelsy clamp. Continuous running 2- 0 Vicryl sutures were placed through the epithelium all the way down to the level of the perineum, an d then back upon through the opposite side. The inlay graft was laid and the perineal body was recon structed. There was excellent support. Rectal exam was performed. No evidence of any trauma or for eign body. Thorough irrigation and suction were performed. excellent jets of urine from both ureteric orifices. No evidence of any tumors or stones. The procedure was completed. Needle a nd sponge counts were correct. The patient was recovered from anesthesia. Tidwell was left in place. Vaginal packing was placed. She was sent to the floor for ove rnight monitoring. APOORVA/SHAWNA Voice ID: [id number] Report ID: [id number]
== END 2023-06-01 10:30 | disposition home or self-care (01) ==
LOC: OR 06:55 → 2ND 13:42
PROVIDERS: ADMIT Obstetrics & Gynecology; ATTEND Obstetrics & Gynecology
PROC: 0JUC0JZ Supplement of Pelvic Region Subcutaneous Tissue and Fascia with Synthetic Substitute, Open Approach (ICD-10-PCS; 2023-05-31)
PROC: 0JQC0ZZ Repair Pelvic Region Subcutaneous Tissue and Fascia, Open Approach (ICD-10-PCS; 2023-05-31)
PROC: 0USG8ZZ Reposition Vagina, Via Natural or Artificial Opening Endoscopic (ICD-10-PCS; principal; 2023-05-31 09:00)
DX: N81.3 Complete uterovaginal prolapse (principal); N81.81 Perineocele; F41.9 Anxiety disorder, unspecified; R12 Heartburn; M79.7 Fibromyalgia; M06.9 Rheumatoid arthritis, unspecified; K80.20 Calculus of gallbladder without cholecystitis without obstruction; K57.90 Diverticulosis of intestine, part unspecified, without perforation or abscess without bleeding; F03.90 Unspecified dementia, unspecified severity, without behavioral disturbance, psychotic disturbance, mood disturbance, and anxiety; I10 Essential (primary) hypertension
CPT/HCPCS: 57282; 57250; 93005; 85025; 80048; 36415; 86900; 86850; 85610; 86901; 85730; 81003; 94010 ×2; 31720; J2550; A4216; J2704; J2250; J3010 ×2; J2270 ×4; J1170 ×2; J2405 ×2; J7120 ×4; G0378; G0379

== ENCOUNTER 2024-03-26 06:30 | Day surgery (SDC) | payer OTHER ==
[2024-03-24 08:31] LABS: Absolute Basophils 0.1 K/uL (0-0.5); Absolute Eosinophils 0.4 K/uL (0-0.5); Absolute Lymphocytes (CBC) 2.5 K/uL (0.7-4.9); Absolute Monocytes 0.7 K/uL (0.1-1.3); Absolute Neutrophil 6.3 K/uL (1.8-8.0); Basophils % 0.9 % (0-1.3); Hematocrit 39.2 % (36.0-45.0); Hemoglobin 12.8 g/dL (12.0-15.0); Lymphocytes % 25.2 % (15.3-44.8); MCH 28.3 pg (27.0-35.0); MCHC 32.8 g/dL (32.0-36.0); MCV 86.3 fL (80-100); MPV 7.8 fL (7.6-11.3); Neutrophils % 62.9 % (41.7-73.7); Platelets 266 thou/uL (152-406); RBC Red Blood Cell Count 4.54 M/uL (3.86-4.86); Red Cell Distribution Width 15.2 % (12.1-15.2)
[2024-03-24 08:47] LABS: Anion Gap 8.5 mEq/L (5.0-15.0); Potassium 5.5 mEq/L (3.5-5.1)
--- NOTE | 2024-03-24 16:59 | EKG ---
Test Date: 2024-03-24 Test Time: 08:05:36 Mathematics Education Professor: ELIOT MEASUREMENT RESULTS: Intervals: Rate: 54 [place]: 232 QRSD: 82 QT: 428 QTc: 405 [place]: P: 85 [place]: 232 QRS: 61 T: 73 INTERPRETIVE STATEMENTS: Sinus bradycardia with 1st degree AV block Otherwise normal ECG Compared to ECG 05/28/2023 15:00:10 Sinus rhythm no longer present Atrial premature complex(es) no longer present Aberrant conduction of supraventricular beat(s) no longer present Electronically Signed On 03-24-24 16:58:08 CDT by Morales Castillo
[2024-03-26] MEDS ORDERED: Ringers Lactate 1,000 ML IV ONE (06:50)
[2024-03-26 07:39] VITALS: O2SAT 99
[2024-03-26] MEDS ORDERED: LIDOCAINE 1% MPF 5 ML VIAL ONE (08:47)
[2024-03-26] MEDS ORDERED: propofoL 200 MG/20 ML VIAL IV ONE (08:48)
[2024-03-26 10:26] VITALS: BP 150/54; TEMP 97.6
== END 2024-03-26 10:10 | disposition home or self-care (01) ==
LOC: OR 06:30
PROVIDERS: ATTEND Internal Medicine Gastroenterology
PROC: 0DBF8ZX Excision of Right Large Intestine, Via Natural or Artificial Opening Endoscopic, Diagnostic (ICD-10-PCS; 2024-03-26)
PROC: 0DBG8ZX Excision of Left Large Intestine, Via Natural or Artificial Opening Endoscopic, Diagnostic (ICD-10-PCS; 2024-03-26)
PROC: 0DBC8ZX Excision of Ileocecal Valve, Via Natural or Artificial Opening Endoscopic, Diagnostic (ICD-10-PCS; 2024-03-26)
PROC: 0DBK8ZX Excision of Ascending Colon, Via Natural or Artificial Opening Endoscopic, Diagnostic (ICD-10-PCS; principal; 2024-03-26 08:00)
DX: K59.1 Functional diarrhea (principal); R19.4 Change in bowel habit; R14.1 Gas pain; R10.31 Right lower quadrant pain; K64.8 Other hemorrhoids; K57.30 Diverticulosis of large intestine without perforation or abscess without bleeding; D12.2 Benign neoplasm of ascending colon; K52.9 Noninfective gastroenteritis and colitis, unspecified; K62.89 Other specified diseases of anus and rectum; Z86.010 Personal history of colon polyps
CPT/HCPCS: 93005; 85025; 80048; 36415; 88305; 45380; J2704; J2001; J7120